=== PATIENT | male | born 1940 | race Caucasian/White ===

== ENCOUNTER 2024-03-07 13:29 | Inpatient (IN) | payer OTHER, SELFPAY ==
[2024-03-04 19:47] VITALS: BP 157/94
[2024-03-04 20:11] LABS: % Basophils 0.4 % (0-2); % Eosinophils 0.1 % (0-6); % Immature Granulocytes 0.8 % (0-0.5); % Lymphocytes 6.2 % (20.5-51.1); % Monocytes 7.6 % (1.7-9.3); % Neutrophils 84.9 % (42.2-75.2); Absolute Immature Granulocytes 0.1 10^3/uL (0-0.05); Absolute Lymphocytes 0.5 10^3/uL (1.2-3.4); Absolute Monocytes 0.6 10^3/uL (0.1-0.6); Absolute Neutrophils 6.5 10^3/uL (1.4-6.5); Hemoglobin 12.7 g/dL (13.0-18.0); Mean Corp Hgb Conc. 34.3 g/dL (33.0-37.0); Mean Corpuscular Hgb 32.1 pg (27.0-31.0); Mean Corpuscular Volume 93.4 fL (80.0-94.0); Mean Platelet Volume 8.8 fL (7.4-10.4); Nucleated Red Blood Cells % 0 % (-); Platelet Count 152 10^3/uL (130-400); Red Blood Cell Count 3.96 10^6/uL (4.70-6.10); Red Cell Dist. Width 13.2 % (11.5-14.5); White Blood Cell Count 7.6 10^3/uL (4.8-10.8)
[2024-03-04 20:25] LABS: ALT (SGPT) 47 U/L (0-50); AST (SGOT) 40 U/L (17-59); Albumin 4.8 g/dl (3.5-5.0); Alkaline Phosphatase 83 U/L (38-126); Blood Urea Nitrogen 26 mg/dl (9-20); Calcium 9.8 mg/dl (8.4-10.2); Carbon Dioxide 28 mmol/L (22-30); Chloride 100 mmol/L (98-107); Glucose 128 mg/dl (70-99); Potassium 4.5 mmol/L (3.5-5.1); Sodium 134 mmol/L (135-145); Total Protein 7.8 g/dl (6.3-8.2); eGFR 59.63
--- NOTE | 2024-03-04 20:48 | ED.GENMED ---
History of Present Illness
General
Chief Complaint: Weakness
Source: patient, spouse and family
Exam Limitations: none
Time Seen by Provider: 03/04/24 20:12
Nursing documentation reviewed up to this point in time: agreed with
Travel History
Have you had any contact with someone who has COVID-19?: No
Do you have any symptoms of coronavirus? Fever > 100 degrees, chills, cough, shortness of breath, sore throat, loss of taste or smell, muscle aches, or headache?: No
History of Present Illness
History of Present Illness:
Patient with history of glioblastoma, off any treatment for the past 3 years, after he was advised that he had already received maximal treatment, presents to ED secondary to increased generalized weakness over the past 2 days, along with decreased
appetite. Denies headache. Denies chest pain. Denies sore throat. Denies coughing. Denies abdominal pain. Denies nausea, vomiting, or diarrhea. Patient states that he was given medication by his primary care physician 2 days ago to alleviate
urinary frequency at nighttime, and feels as though that medication may have 'dried him up'. Denies fever or chills. Denies previous history of similar symptoms. At baseline, since CVA in July 2023, patient has been utilizing walker
independently. Today, per spouse, took multiple people to assist patient back to his bed.
Review of Systems
Review of Systems
Allergies reviewed?: Yes
All Other Systems: ROS reviewed and negative except as documented in HPI and ROS
Constitutional: Reports no symptoms; Denies fever or chills
EENT: Reports no symptoms
Respiratory: Reports no symptoms; Denies cough
Cardiac: Reports no symptoms; Denies chest pain
ABD/GI: Reports no symptoms; Denies abdominal pain, vomiting or diarrhea
: Reports no symptoms; Denies dysuria or frequency
Musculoskeletal: Reports no symptoms
Skin: Reports no symptoms
Neurological: Reports weakness; Denies dizzy, headache or numbness
Phy Exam
Physical Exam
Physical Exam:
Physical Exam
General: no apparent distress, not acutely ill. afebrile. weak appearing.
Head: nc/at. eomi
Neck: supple. normal range of motion.
Heart: s1/s2 regular rate and rhythm, no murmur. equal radial pulses.
Lungs: no acute respiratory distress. clear bilaterally
Abdomen: normal bowel sounds. not tender.
Neuro: alert and oriented x 3. no focal motor/sensory deficits. slowed speech, chronic
Skin: no rash
Psychiatric: well kept. interactive and cooperative
Extremities: no edema. no calf tenderness.
Course
Orders/Labs/Results
Orders:
Orders
03/04/24 Breakfast
Cholesterol Lowering
Cholesterol Lowering: Sodium, 2 Gram
03/04/24 20:03
Complete Blood Count/With Diff Urgent
Comprehensive Metabolic Panel Urgent
Magnesium Urgent
Comment: ADD ON
TSH Reflex To Free T4 Urgent
Comment: ADD ON
03/04/24 20:47
Add On- LAB Urgent
Tests Added?: magnesium, TSH to reflex free T4
CT Head W/o Iv Contrast Urgent
Comment:
Reason For Exam: weakness, w hx glioblastoma
0.9% Sodium Chloride 500 ml [Nss] 500 ml IV BOLUS
03/04/24 20:53
Electrocardiogram (*1) Urgent
Reason for Study: Fatigue / Weakness
03/04/24 20:58
Troponin I Urgent
03/04/24 21:39
Urinalysis Reflex To Culture Urgent
Date Specimen was Collected: 03/04/24
Time Specimen was Collected: 21:30
Urine Microscopic Reflex Cult Urgent
Urine Culture Urgent
ADAN Source: U
Specimen Description:
Date Specimen was Collected: 03/04/24
Time Specimen was Collected: 21:30
Comment: ADD ON
03/04/24 22:02
Add On - Microbiology Urgent
Tests Added?: urine culture
03/04/24 22:23
Admit/Transfer Patient As Directed
Co-Sign Provider:
Level of Care: Observation services
Assign to:: Medical/Surgical
Physician / Group: norma
Diagnosis: weakness
03/04/24 22:24
Code Status As Directed
Resuscitation Status: Full Code
03/04/24 22:26
Blood Culture Q30M
ADAN Source: Blood/Venous
Specimen Description:
Blood Culture Q30M
ADAN Source: Blood/Venous
Specimen Description:
03/04/24 22:58
0.9% Sodium Chloride 1000 ml [Nss] 1,000 ml IV 80 mls/hr
Acetaminophen [Tylenol] 650 mg PO Q6HPRN PRN
Bisacodyl [Dulcolax] 10 mg RECTAL [id number] PRN
Docusate W/Senna [Senokot-S] 1 tablet PO BIDPRN PRN
Polyethylene Glycol Powder [Miralax] 17 grams PO DAILYPRN PRN
03/04/24 22:58
Activity As Directed
Activity Level: As Tolerated
Orthostatic Vital Signs As Directed
Orthostatic VS Frequency: BID
Vital Signs As Directed
Frequency: Per unit guidelines
03/04/24 23:12
COVID-19 Antigen Stat
Source: Nasal Swab
03/05/24 06:00
Basic Metabolic Panel IN AM
Complete Blood Count/No Diff IN AM
Occupational Therapy Consult [Ot Eval And Treat] IN AM
Physical Therapy Consult [Pt Eval And Treat] IN AM
Activity Level: As Tolerated
03/05/24 08:00
Atenolol [Tenormin] 25 mg PO BID
Clotrimazole [Lotrimin 1% Cream] 1 applic TOPICAL DAILY
Levetiracetam [Keppra] 500 mg PO BID
Multivitamin [Theragran] 1 tablet PO DAILY
Pantoprazole [Protonix] 40 mg PO DAILY
03/05/24 22:00
Amiodarone [Pacerone] 200 mg PO HS
Ezetimibe [Zetia] 10 mg PO HS
Rivaroxaban [Xarelto] 15 mg PO HS
Rosuvastatin Calcium [Crestor] 5 mg PO MOWEFR@2200
Abnormal Lab Results
03/04/24 03/04/24
20:03 21:39
RBC 3.96 L 10^6/uL
(4.70-6.10)
Hgb 12.7 L g/dL
(13.0-18.0)
Hct 37.0 L %
(39.0-52.0)
MCH 32.1 H pg
(27.0-31.0)
Abs Immat Gran (auto) 0.1 H 10^3/uL
(0-0.05)
Absolute Lymphs (auto) 0.5 L 10^3/uL
(1.2-3.4)
Immature Gran % 0.8 H %
(0-0.5)
Neutrophils % 84.9 H %
(42.2-75.2)
Lymphocytes % 6.2 L %
(20.5-51.1)
Sodium 134 L mmol/L
(135-145)
BUN 26 H mg/dl
(9-20)
Glucose 128 H mg/dl
(70-99)
Urine Ketones Trace A
(Negative)
Ur Occult Blood Reflex Trace A
(Negative)
Urine RBC 3-6 A /HPF
(0-2)
Urine Bacteria (Reflex) Few A
(Negative)
03/04/24 20:03
03/04/24 20:03
Vital Signs
Initial and Last Documented VS:
Initial Vital Signs
Temp Pulse Resp BP Pulse Ox
97.7 F 67 18 157/94 97
03/04/24 19:47 03/04/24 19:47 03/04/24 19:47 03/04/24 19:47 03/04/24 19:47
Last Documented Vital Signs
Temp Pulse Resp BP Pulse Ox
97.7 F 68 17 147/69 96
03/04/24 19:47 03/05/24 01:27 03/05/24 01:27 03/04/24 21:54 03/04/24 21:54
MDM/Problems Addressed
MDM/Problems Addressed:
CT head: No acute findings.
Blood work reviewed and discussed with patient and family. Increased BUN to creatinine ratio, suggestive of mild dehydration, along with history of decreased oral intake over the past 2 days. Patient with profound weakness, during evaluation,
which will need further evaluation. As such, patient will be admitted for further evaluation and treatment, including continual hydration.
*Critical Care Note
Total Time (30-74mins, 75-104mins- exclusive of procedures): Not Applicable
ED Attending Note
-
Portions of this chart may have been created with voice recognition software.� Occasional wrong word or��sound alike� substitutions may have occurred due to the inherent limitations of voice recognition software.
Discharge Plan
Departure
Patient Disposition: Admit
Date of Disposition: 03/04/24
Time of Disposition: 22:06
Admit to: Med/Surg
Presentation/result/management discussed w/ accepting MD/DO: Hospitalist
Discharge Problem:
Weakness, Dehydration
Interventions
Interventions:
*Risk Screen - Suicide Last Done: 03/04/24 19:47
*General Assessment Last Done: 03/04/24 22:49
*Neglect/Abuse Screening Last Done: 03/04/24 23:22
*ED COVID-19 Vaccine History Last Done: 03/04/24 22:49
ED- Neurological Assessment Last Done: 03/04/24 21:55
[2024-03-04] MEDS: NSS 500 IV (20:57)
[2024-03-04 21:22] LABS: Magnesium 1.9 mg/dl (1.6-2.3)
[2024-03-04 21:32] LABS: Troponin I < 0.012 ng/ml
[2024-03-04 21:47] LABS: Urine Albumin Negative (Neg - Trace); Urine Bilirubin Negative (Negative); Urine Character Clear (Clear); Urine Color Yellow; Urine Glucose Negative (Negative); Urine Ketone Trace (Negative); Urine Leukocyte Negative (Negative); Urine Nitrite Negative (Negative); Urine Occult Blood Trace (Negative); Urine Urobilinogen Negative (Neg - 1+)
[2024-03-04 21:54] VITALS: BP 147/69
[2024-03-04 21:55] LABS: Urine Mucus Few
[2024-03-04 21:56] LABS: Urine Bacteria Few (Negative); Urine White Cell 0-2 /HPF (0-5)
[2024-03-04 21:57] LABS: Urine Squamous Cell 0-2 /LPF (Few)
[2024-03-04 21:59] LABS: TSH Reflex To Free T4 1.67 uIU/ml (0.47-4.68)
--- NOTE | 2024-03-04 22:07 | HPS.HSE ---
Family Physician
-
Family Physician: Anju Mendoza
Chief Complaint
-
weakness
History of Present Illness
83-year-old with past medical history for glioblastoma, hypertension, hyperlipidemia, A-fib, pacemaker presented to us with 2 days of generalized weakness Denies headache. Denies chest pain. Denies sore throat. Denies coughing. Denies
abdominal pain. Denies nausea, vomiting, or diarrhea. Patient denies any dizziness or syncopal episode. patient states that he was given medication by his primary care physician 2 days ago to alleviate urinary frequency at nighttime, and feels as
though that medication may have 'dried him up'. At baseline, since CVA in July 2023, patient has been utilizing walker independently. Today patient was very weak given to walk with a walker.
Medical History
Past Medical History
Past Medical History: Reports Other
Additional Past Medical History:
lioblastoma status postresection, chemotherapy, and radiation, stroke, A-fib, CAD, HTN, hyperlipidemia, right knee arthritis
Past Surgical History: Reports Other
Additional Past Surgical History:
Pacemaker, cardiac stent, left craniotomy for glioblastoma resection
Social History
Tobacco: Non-smoker
Alcohol: Occasional
Drug: None
Personal:
Living: With Family
Family History
Family History: Not pertinent
Allergies / Home Medications
Allergies reflects when Allergies were last updated in [employer].
Home Medications with original date entered in [employer]
Allergy/Medication List:
Allergies
Allergy/AdvReac Type Severity Reaction Status Date / Time
iodine Allergy Unknown Unknown Verified 03/04/24 19:51
Home Medications
acetaminophen 325 mg tablet 650 mg PO Q6HPRN PRN mild pain 03/04/24
amiodarone 200 mg tablet 200 mg PO HS 03/04/24
atenolol 25 mg tablet 25 mg PO BID 03/04/24
clotrimazole 1 % topical cream (Athlete's Foot (clotrimazole)) 1 applic topical DAILY B/L feet 03/04/24
ezetimibe 10 mg tablet (Zetia) 10 mg PO HS High Cholesterol 03/04/24
ipratropium bromide 21 mcg (0.03 %) nasal spray 2 spray intranasal DAILYPRN PRN rhinitis 03/04/24
levetiracetam 500 mg tablet 500 mg PO BID 03/04/24
mvdnpysoawgi-juo-vnsph acid-vit K-lycop 400 mcg-20 mcg-370 mcg tablet (Men's 50 Plus Multivitamin) 1 tab PO DAILY 03/04/24
omeprazole 20 mg capsule,delayed release 20 mg PO DAILY 03/04/24
polyethylene glycol 3350 17 gram oral powder packet (HealthyLax) 17 g PO DAILY PRN constipation 03/04/24
rivaroxaban 15 mg tablet (Xarelto) 15 mg PO HS Blood Clot Prevention/Tx 03/04/24
rosuvastatin 5 mg tablet 5 mg PO MOWEFR@2200 03/04/24
tamsulosin 0.4 mg capsule 0.4 mg PO .SEE BELOW 03/04/24
Review of Systems
-
Constitutional: Reports No Symptoms
EENT: Reports No Symptoms
Respiratory: Reports No Symptoms
Cardiac: Reports No Symptoms
Abdomen/GI: Reports No Symptoms
: Reports No Symptoms
Musculoskeletal: Reports No Symptoms
Skin: Reports No Symptoms
Neurological: Reports Weakness
Endocrine: Reports No Symptoms
Hematologic/Lymphatic: Reports No Symptoms
Psych: Reports No Symptoms
Physical Exam
Vital Signs
Vital Signs
Temp Pulse Resp BP Pulse Ox
97.7 F 64 16 147/69 96
03/04/24 19:47 03/04/24 21:54 03/04/24 21:54 03/04/24 21:54 03/04/24 21:54
Physical Exam
General: Well Developed, Well Nourished and No Apparent Distress
HEENT: NormoCephalic, Moist mucous membranes and Atraumatic
Respiratory: Clear
Cardiac: S1/S2 and Regular Rhythm; No Murmur or Rub
GI: Soft, Non Tender, Non Distended and Normal Bowel Sounds; No Organomegaly
Rectal: Deferred by Provider
Musculoskeletal: No Clubbing, No Cyanosis and No Edema
Skin: No Rash
Neuro: AO x 3 and Nonfocal/grossly intact
Psych: Calm
Laboratory Results
-
03/04/24 20:03
03/04/24 20:03
Laboratory Results
Total Bilirubin 1.0 mg/dl (0.2-1.3) 03/04/24 20:03
AST 40 U/L (17-59) 03/04/24 20:03
ALT 47 U/L (0-50) 03/04/24 20:03
Alkaline Phosphatase 83 U/L (38-126) 03/04/24 20:03
Troponin I < 0.012 ng/ml 03/04/24 20:58
Data Reviewed
-
CT Scan: Report Reviewed by me
Lab Data: Labs Reviewed by me
Impression/Plan
-
#profound weakness likely from poor oral intake/dehydration
-head CT with no acute intracranial abnormality
-UA negative
-PT/OT consult
-normal saline continued
Paroxysmal Atrial Fibrillation s/p Pacemaker
-Continue Xarelto for anticoagulation
-amiodarone continued
-atenolol continued
#essential Hypertension
-normotensive at this time. BP 132/76
-cont home atenolol
Hyperlipidemia
-Continue Zetia,statin
#seizure
-keppra continued
#GERD
-PPI continued
Constipation
started on bowel regimen
Glioblastoma s/p Resection, Chemo and Radiation
DVT proph: Xarelto
Code Status: full code
--- NOTE | 2024-03-04 22:36 | W.PN.UPDATE ---
Update Note
Progress Note Update
This is an addendum to the H&P written by JAH Bean on 03/04/2024. Patient seen and examined independently with ANIMAL BEHAVIORIST.
83-year-old male past medical history of glioblastoma status post craniotomy off of any treatment for past 3 years, seizure history, BPH, paroxysmal atrial fibrillation on Xarelto, hyperlipidemia, GERD, presenting with weakness for the past 2 days.
Denies any other focal symptoms. He had just started Flomax few days ago. Has chronic low intake of food and liquids.
Urinalysis unremarkable. Labs unremarkable. CT head shows stable findings. check COVID. Symptoms possibly related to poor p.o. intake/dehydration. IV fluids. Hold Flomax for now although no specific symptoms to indicate this is the cause of
weakness.
[2024-03-04] MEDS: NSS 1000 IV (23:18)
[2024-03-05] VITALS (8 sets, daily range): BP systolic 129–152; BP diastolic 62–93; PULSE 63–70; O2SAT 95
[2024-03-05 00:05] LABS: COVID-19 Antigen Positive (Negative)
[2024-03-05 06:16] LABS: Hematocrit 32.7 % (39.0-52.0); Hemoglobin 11.3 g/dL (13.0-18.0); Mean Corp Hgb Conc. 34.6 g/dL (33.0-37.0); Mean Corpuscular Hgb 32.3 pg (27.0-31.0); Mean Corpuscular Volume 93.4 fL (80.0-94.0); Mean Platelet Volume 8.9 fL (7.4-10.4); Platelet Count 138 10^3/uL (130-400); Red Cell Dist. Width 13.3 % (11.5-14.5); White Blood Cell Count 6.5 10^3/uL (4.8-10.8)
[2024-03-05 06:49] LABS: Blood Urea Nitrogen 19 mg/dl (9-20); Calcium 9.5 mg/dl (8.4-10.2); Carbon Dioxide 26 mmol/L (22-30); Chloride 103 mmol/L (98-107); Glucose 113 mg/dl (70-99); Potassium 4.1 mmol/L (3.5-5.1); Sodium 136 mmol/L (135-145); eGFR > 60.00
[2024-03-05] MEDS: KEPPRA 500 MG PO ×2 (08:08→21:03)
[2024-03-05] MEDS: PROTONIX 40 MG PO (08:08)
[2024-03-05] MEDS: THERAGRAN 1 TABLET PO (08:08)
--- NOTE | 2024-03-05 09:05 | W.PN.HOSP.TC ---
Today's Communication/Plan
-
PT OT
Encourage incentive spirometry
Out of bed to chair
Stop IV fluids
Assessment / Plan
Assessment / Plan
83-year-old male admitted because of generalized weakness. He has a history of glioblastoma patient was placed on Flomax by PCP recently.
On examination awake alert
Has difficulty expressing words sometimes because of his glioblastoma
Cardiovascular system is most appreciated
Chest. Auscultation of abdomen soft and nontender
CT head-chronic encephalomalacia and gliosis in the left parietal lobe with an overlying left parietal craniotomy defect. Small parenchymal calcification in the left parietal lobe. Moderate subcortical deep and very ventricular white matter
low-attenuation compatible with changes of chronic small vessel ischemic disease.
# Weakness secondary to COVID-19 infection
Not hypoxic
Check chest x-ray
Asymptomatic
Paxlovid has too many interactions including amiodarone, Xarelto, statin-holding these medicines-higher risk than benefits of Paxlovid as patient is asymptomatic.
# Coronary artery disease with history of stent placement
# History of glioblastoma with surgery -H/O Craniotomy and Resection, Chemo and Radiation- 9 years ago
Aphasia /Dysphasia due to that. says he gets frustrated.
Continue Keppra
# H/O CVA
# Nocturia-patient was started on Flomax we will restart it.(Weakness is unlikely from that as he took it only for 1 night and he is positive for COVID now. is aware)
# Hyperlipidemia-continue statin, Zetia
# Paroxysmal Afib- Continue Xarelto, Atenolol, amiodarone
# Ambulatory Dysfunction- Uses a walker
# DVT prophylaxis-Xarelto
# Code Status: full code
Discussed with regarding plan of care. Offered to talk to daughter. declined
Discussed with nursing
Anticipated Discharge: Within 24 hours
Subjective/Interval History
-
Date of Service: March 05, 2024
Objective Data
-
Labs:
Laboratory Results
03/05/24
05:58
WBC 6.5
Hgb 11.3 L
Hct 32.7 L
Plt Count 138
Sodium 136
Potassium 4.1
Chloride 103
Carbon Dioxide 26
BUN 19
Creatinine 1.0
Glucose 113 H
Calcium 9.5
Vital Signs:
Vital Signs
Temp Pulse Resp BP Pulse Ox
98.2 F 86 16 145/93 97
03/05/24 08:14 03/05/24 08:14 03/05/24 08:14 03/05/24 08:14 03/05/24 08:14
I&O
03/04/24 03/05/24 03/06/24
06:59 06:59 06:59
Output Total 500 / 500
Balance -500 / -500
[2024-03-05 10:21] LABS: Procalcitonin < 0.05 ng/ml (0.0-0.25)
--- NOTE | 2024-03-05 11:28 | CM ---
Cm reviewed medical records. CM left message for patient's to discuss [facility] letter and discharge planning recommendations.
[2024-03-05] MEDS: TENORMIN PO (12:25)
[2024-03-05] MEDS: LOTRIMIN 1% CREAM TOPICAL (14:05)
--- NOTE | 2024-03-05 14:33 | PTCARENOTE ---
pt awake oriented to self and knows he is in a hospital. states no pain or sob. speech is delayed and confused at times. pt forgetful about current condition and plan of care. room air breath sounds diminished. harsh cough. placed on bed alarm
and video monitor for safety
[2024-03-05] MEDS: TYLENOL 650 MG PO (17:48)
[2024-03-05] MEDS: TENORMIN 25 MG PO (21:04)
[2024-03-05] MEDS: XARELTO 15 MG PO (22:09)
[2024-03-05] MEDS: ZETIA 10 MG PO (22:09)
[2024-03-05] MEDS: CRESTOR 5 MG PO (22:10)
[2024-03-05] MEDS: FLOMAX 0.400000000000000022 MG PO (22:10)
[2024-03-05] MEDS: PACERONE 200 MG PO (22:12)
[2024-03-06 08:00] VITALS: BP 105/63
[2024-03-06] MEDS: TENORMIN 25 MG PO (11:25)
[2024-03-06] MEDS: THERAGRAN 1 TABLET PO (11:25)
[2024-03-06] MEDS: PROTONIX 40 MG PO (11:25)
[2024-03-06] MEDS: KEPPRA 500 MG PO ×2 (11:26→19:02)
--- NOTE | 2024-03-06 11:28 | W.PN.HOSP.TC ---
Today's Communication/Plan
-
Medically stable for discharge to rehab
Assessment / Plan
Assessment / Plan
83-year-old male admitted because of generalized weakness. He has a history of glioblastoma patient was placed on Flomax by PCP recently.
On examination awake alert
Has difficulty expressing words sometimes because of his glioblastoma
Cardiovascular system is most appreciated
Chest. Auscultation of abdomen soft and nontender
CT head-chronic encephalomalacia and gliosis in the left parietal lobe with an overlying left parietal craniotomy defect. Small parenchymal calcification in the left parietal lobe. Moderate subcortical deep and very ventricular white matter
low-attenuation compatible with changes of chronic small vessel ischemic disease.
# Weakness secondary to COVID-19 infection
Not hypoxic
Chest x-ray-Neg
Asymptomatic
Paxlovid has too many interactions including amiodarone, Xarelto, statin-holding these medicines-higher risk than benefits of Paxlovid as patient is asymptomatic.
Isolation.
Encourage IS( Not at bed side)
# Coronary artery disease with history of stent placement
# History of glioblastoma with surgery -H/O Craniotomy and Resection, Chemo and Radiation- 9 years ago
Aphasia /Dysphasia due to that. says he gets frustrated.
Continue Keppra
# H/O CVA
# Nocturia-patient was started on Flomax we will restart it.(Weakness is unlikely from that as he took it only for 1 night and he is positive for COVID now. is aware)
# Hyperlipidemia-continue statin, Zetia
# Paroxysmal Afib- Continue Xarelto, Atenolol, amiodarone
# Ambulatory Dysfunction- Uses a walker
# DVT prophylaxis-Xarelto
# Code Status: full code
Discussed with nursing
Anticipated Discharge: Today
Subjective/Interval History
-
Date of Service: March 06, 2024
Objective Data
-
Vital Signs:
Vital Signs
Temp Pulse Resp BP Pulse Ox
98.2 F 66 20 105/63 96
03/06/24 08:00 03/06/24 08:00 03/06/24 08:00 03/06/24 08:00 03/06/24 08:00
I&O
03/05/24 03/06/24 03/07/24
06:59 06:59 06:59
Intake Total 960 / 960
Output Total 500 / 500 600 / 600
Balance -500 / -500 360 / 360
[2024-03-06 15:30] VITALS: BP 91/58
[2024-03-06] MEDS: LOTRIMIN 1% CREAM TOPICAL (19:04)
[2024-03-06] MEDS: TENORMIN PO (19:25)
[2024-03-06] MEDS: FLOMAX 0.400000000000000022 MG PO (21:33)
[2024-03-06] MEDS: ZETIA 10 MG PO (21:34)
[2024-03-06] MEDS: XARELTO 15 MG PO (21:34)
[2024-03-06 23:01] VITALS: BP 100/80
[2024-03-06] MEDS: PACERONE PO (23:01)
[2024-03-07 01:29] VITALS: BP 111/68; BP 73/47; BP 95/58; PULSE 62; PULSE 65; PULSE 69
[2024-03-07 07:30] VITALS: BP 113/76
[2024-03-07] MEDS: TENORMIN 25 MG PO (09:01)
[2024-03-07] MEDS: KEPPRA 500 MG PO ×2 (09:02→21:00)
[2024-03-07] MEDS: THERAGRAN 1 TABLET PO (09:02)
[2024-03-07] MEDS: PROTONIX 40 MG PO (09:02)
[2024-03-07] MEDS: LOTRIMIN 1% CREAM TOPICAL (09:03)
--- NOTE | 2024-03-07 10:20 | CM ---
Addendum entered by Natali Avila 03/07/24 10:27:
Late not from 03/06/2024
Original Note:
Late note from 03/07/2024: Lobito is ready for discharge, however not capable to manage at home. Call to [facility] and spoke with Kimmie regarding potential for admission to SNF. Insurance will not cover SNF stay, as [facility] has
[facility]. I contacted [facility] to determine if pt was possibly eligible for the SNF waiver, however he does not qualify for this. SNF admission was discussed with his via telephone with option for private pay at [facility] at
$529/day. Cost of SNF is not feasible per and she advised she would be contacting her son who is a physician. Option for hiring private aid services in home (which would be less costly) were discussed, however Mrs. Gupta did not feel that
they should be required to pay for services. Case Management will follow to further discuss options and costs.
--- NOTE | 2024-03-07 10:31 | CM ---
VM received from pt's son, Dr. Gupta, last evening at again this AM. CM has changed to Sheree Jackson and case discussed with her for hand off. Son's contact information provided via [employer].
--- NOTE | 2024-03-07 11:27 | W.PN.HOSP.TC ---
Today's Communication/Plan
-
Labs pending.
Assessment / Plan
Assessment / Plan
83-year-old male admitted because of generalized weakness. He has a history of glioblastoma patient was placed on Flomax by PCP recently.
On examination awake alert
Has difficulty expressing words sometimes because of his glioblastoma
Cardiovascular system is most appreciated
Chest. Auscultation of abdomen soft and nontender
CT head-chronic encephalomalacia and gliosis in the left parietal lobe with an overlying left parietal craniotomy defect. Small parenchymal calcification in the left parietal lobe. Moderate subcortical deep and very ventricular white matter
low-attenuation compatible with changes of chronic small vessel ischemic disease.
# Weakness secondary to COVID-19 infection
Not hypoxic
Chest x-ray-Neg
Paxlovid has too many interactions including amiodarone, Xarelto, statin-holding these medicines-higher risk than benefits of Paxlovid as patient is asymptomatic.
Isolation.
Encourage IS
# Coronary artery disease with history of stent placement
# History of glioblastoma with surgery -H/O Craniotomy and Resection, Chemo and Radiation- 9 years ago
Aphasia /Dysphasia due to that. says he gets frustrated.
Continue Keppra
# H/O CVA
# Nocturia-patient was started on Flomax -restarted (Weakness is unlikely from that as he took it only for 1 night and he is positive for COVID now. and son aware)
# Hyperlipidemia-continue statin, Zetia
# Paroxysmal Afib- Continue Xarelto, Atenolol, amiodarone
Blood pressure is on the low side and heart rate was in 60s and they held amiodarone last night. I will go down on the atenolol to 12.5 twice daily
# Ambulatory Dysfunction- Uses a walker
# DVT prophylaxis-Xarelto
# Code Status: full code
Discussed with nursing
Spoke to son who is anesthesiologist [phone]. He has about it and would like contact lens fitter and then patient's .
Patient's also has COVID now and really weak and cannot care for the patient.
Reviewed with son regarding Reason for pt not being on Paxlovid.
Anticipated Discharge: 24 - 48 hours
Subjective/Interval History
-
Date of Service: March 07, 2024
Objective Data
-
Labs:
Laboratory Results
03/07/24
11:23
WBC Pending
Hgb Pending
Hct Pending
Plt Count Pending
Sodium Pending
Potassium Pending
Chloride Pending
Carbon Dioxide Pending
BUN Pending
Creatinine Pending
Glucose Pending
Calcium Pending
Vital Signs:
Vital Signs
Temp Pulse Resp BP Pulse Ox
97.9 F 72 18 113/76 97
03/07/24 07:30 03/07/24 07:30 03/07/24 07:30 03/07/24 09:01 03/07/24 07:30
I&O
03/06/24 03/07/24 03/08/24
06:59 06:59 06:59
Intake Total 960 / 960 480 / 480
Output Total 600 / 600 150 / 150
Balance 360 / 360 330 / 330
[2024-03-07 12:34] LABS: Hematocrit 38.6 % (39.0-52.0); Hemoglobin 13.1 g/dL (13.0-18.0); Mean Corp Hgb Conc. 33.9 g/dL (33.0-37.0); Mean Corpuscular Hgb 32.1 pg (27.0-31.0); Mean Corpuscular Volume 94.6 fL (80.0-94.0); Mean Platelet Volume 9.4 fL (7.4-10.4); Platelet Count 167 10^3/uL (130-400); Red Blood Cell Count 4.08 10^6/uL (4.70-6.10); Red Cell Dist. Width 13.4 % (11.5-14.5); White Blood Cell Count 6.3 10^3/uL (4.8-10.8)
[2024-03-07 12:48] LABS: Blood Urea Nitrogen 31 mg/dl (9-20); Calcium 9.5 mg/dl (8.4-10.2); Carbon Dioxide 28 mmol/L (22-30); Chloride 99 mmol/L (98-107); Glucose 126 mg/dl (70-99); Sodium 134 mmol/L (135-145); eGFR 45.62
[2024-03-07 12:58] VITALS: BP 123/75; BP 76/43; BP 82/65; BP 96/71
[2024-03-07 14:01] VITALS: BP 123/75; BP 76/43; BP 82/65; BP 96/71
[2024-03-07] MEDS: NSS 1000 IV (14:24)
--- NOTE | 2024-03-07 16:44 | CM ---
Patient seen bedside.
IA completed.
patient lives with spouse in independent living at [facility].
patient ambulates with a RW.
Has not driven since brain tumor surgey.
Independent prior to admission.
has not been to skilled rehab.
PT recommending skilled rehab and agreeable to the [facility].
also has Covid.
spoke with Son today.
PMD: Vincent Mendoza
Pharmacy: Unsure
Plan: possible skilled rehab.
[2024-03-07] MEDS: TENORMIN 12.5 MG PO (21:00)
[2024-03-07] MEDS: ZETIA 10 MG PO (21:40)
[2024-03-07] MEDS: XARELTO 15 MG PO (21:40)
[2024-03-07] MEDS: CRESTOR 5 MG PO (21:41)
[2024-03-07] MEDS: FLOMAX 0.400000000000000022 MG PO (21:41)
[2024-03-07] MEDS: PACERONE 200 MG PO (21:42)
[2024-03-07] MEDS: TYLENOL 650 MG PO (23:13)
[2024-03-08] MEDS: PROTONIX 40 MG PO (07:49)
[2024-03-08] MEDS: TENORMIN 12.5 MG PO ×2 (07:50→21:21)
[2024-03-08 07:51] VITALS: BP 148/101
[2024-03-08] MEDS: KEPPRA 500 MG PO ×2 (07:51→21:21)
[2024-03-08] MEDS: THERAGRAN 1 TABLET PO (07:51)
[2024-03-08] MEDS: LOTRIMIN 1% CREAM TOPICAL (07:51)
[2024-03-08 08:46] LABS: Blood Urea Nitrogen 29 mg/dl (9-20); Carbon Dioxide 27 mmol/L (22-30); Chloride 104 mmol/L (98-107); Glucose 96 mg/dl (70-99); Potassium 3.9 mmol/L (3.5-5.1); Sodium 135 mmol/L (135-145); eGFR 59.63
--- NOTE | 2024-03-08 10:20 | CM ---
PT recommending skilled rehab.
Patients spouse also has Covid.
Elevated BP today.
Continue to follow for medical stability and skilled bed availability.
Referral to [facility].
Plan: skilled rehab when medically stable.
--- NOTE | 2024-03-08 10:41 | PTCARENOTE ---
Assumed care of pt from previous nurse. Pt denies pain. Pt urinated, pvr 178. Pt call almazan is within reach, pt does at times ring call almazan day. but is forgetful, bed alarm in place. will cont to monitor.
[2024-03-08] MEDS: LOTRIMIN 1% CREAM 1 APPLIC TOPICAL (12:08)
--- NOTE | 2024-03-08 12:19 | W.PN.HOSP.TC ---
Today's Communication/Plan
-
BMP in am
Stop IVF and watch
Encourage OOB
Assessment / Plan
Assessment / Plan
83-year-old male admitted because of generalized weakness. He has a history of glioblastoma patient was placed on Flomax by PCP recently.
On examination awake alert
Has difficulty expressing words sometimes because of his glioblastoma
Cardiovascular system is most appreciated
Chest. Auscultation of abdomen soft and nontender
CT head-chronic encephalomalacia and gliosis in the left parietal lobe with an overlying left parietal craniotomy defect. Small parenchymal calcification in the left parietal lobe. Moderate subcortical deep and very ventricular white matter
low-attenuation compatible with changes of chronic small vessel ischemic disease.
# Weakness secondary to COVID-19 infection
Not hypoxic
Chest x-ray-Neg
Paxlovid has too many interactions including amiodarone, Xarelto, statin-holding these medicines-higher risk than benefits of Paxlovid as patient is asymptomatic.
Isolation.
Encourage IS
#OZIEL- Resolving. Stop IVF and watch creat .
Bladder scan with no changes
# Coronary artery disease with history of stent placement
# History of glioblastoma with surgery -H/O Craniotomy and Resection, Chemo and Radiation- 9 years ago
Aphasia /Dysphasia due to that. says he gets frustrated.
Continue Keppra
# H/O CVA
# Nocturia-patient was started on Flomax -restarted (Weakness is unlikely from that as he took it only for 1 night and he is positive for COVID now. and son aware)
# Hyperlipidemia-continue statin, Zetia
# Paroxysmal Afib- Continue Xarelto, Atenolol, amiodarone
Blood pressure is on the low side and heart rate was in 60s and they held amiodarone last night.
Change Atenolol to 25 in am and 12.5 pm
# Ambulatory Dysfunction- Uses a walker
# DVT prophylaxis-Xarelto
# Code Status: full code
Discussed with nursing
03/07/24-Spoke to son who is anesthesiologist [phone].
Patient's also has COVID now and really weak and cannot care for the patient.
Reviewed with son regarding Reason for pt not being on Paxlovid.
Anticipated Discharge: 24 - 48 hours
Subjective/Interval History
-
Date of Service: March 08, 2024
Objective Data
-
Labs:
Laboratory Results
03/08/24
06:49
Sodium 135
Potassium 3.9
Chloride 104
Carbon Dioxide 27
BUN 29 H
Creatinine 1.2
Glucose 96
Calcium 9.0
Vital Signs:
Vital Signs
Temp Pulse Resp BP Pulse Ox
97.6 F 78 18 148/101 98
03/08/24 07:51 03/08/24 07:51 03/08/24 07:51 03/08/24 07:51 03/08/24 07:51
I&O
03/07/24 03/08/24 03/09/24
06:59 06:59 06:59
Intake Total 480 / 480 960 / 960
Output Total 150 / 150 550 / 550
Balance 330 / 330 410 / 410
--- NOTE | 2024-03-08 14:16 | CM ---
Spoke with patients sposue this am re skilled rehab and hopefully bed availability at the [facility], referral also placed to [facility].
Spoke with patient son, Dr Gupta re same, and he is in agreement.
Discussed possibility of difficulty with skilled bed availability due to Covid.
Both Spouse and son aware if neither of 2 facilities selected are unable to accept due to Covid will need to search for another bed.
Plan: skilled rehab when stable and bed available.
[2024-03-08 15:30] VITALS: BP 139/93
[2024-03-08] MEDS: XARELTO 15 MG PO (21:22)
[2024-03-08] MEDS: ZETIA 10 MG PO (21:22)
[2024-03-08] MEDS: FLOMAX 0.400000000000000022 MG PO (21:22)
[2024-03-08] MEDS: PACERONE 200 MG PO (21:22)
[2024-03-08 23:00] VITALS: BP 154/85
--- NOTE | 2024-03-09 03:44 | PTCARENOTE ---
Pt moved from room 421-01 to room 426-01 so pt can be closer to nurses station d/t constantly jumping out of bed and sounding bed alarm. Pt educated on reasoning for room switches. Pts called typewriter mechanic upset stating called her upset
because pts new room was, 'smaller than before and he could touch both sides of room laying down.' Pts reassured pt moved for safety concerns and that the pt was educated on the room switch. Geriatric Nurse spoke to pt again after speaking to and
reassured of reasoning behind move again and pt stated, 'thank you so much for explaining to me, I feel better.'
[2024-03-09] MEDS: TENORMIN 25 MG PO ×2 (08:44→22:37)
[2024-03-09] MEDS: KEPPRA 500 MG PO ×2 (08:45→22:37)
[2024-03-09] MEDS: PROTONIX 40 MG PO (08:45)
[2024-03-09] MEDS: LOTRIMIN 1% CREAM 1 APPLIC TOPICAL (08:45)
[2024-03-09] MEDS: THERAGRAN 1 TABLET PO (08:45)
[2024-03-09 09:05] VITALS: BP 153/83
--- NOTE | 2024-03-09 13:42 | W.PN.HOSP.TC ---
Today's Communication/Plan
-
medically stable for discharge to Rehab
Assessment / Plan
Assessment / Plan
83-year-old male admitted because of generalized weakness. He has a history of glioblastoma patient was placed on Flomax by PCP recently.
On examination awake alert
Has difficulty expressing words sometimes because of his glioblastoma
Cardiovascular system is most appreciated
Chest. Auscultation of abdomen soft and nontender
CT head-chronic encephalomalacia and gliosis in the left parietal lobe with an overlying left parietal craniotomy defect. Small parenchymal calcification in the left parietal lobe. Moderate subcortical deep and very ventricular white matter
low-attenuation compatible with changes of chronic small vessel ischemic disease.
# Weakness secondary to COVID-19 infection
Not hypoxic
Chest x-ray-Neg
Paxlovid has too many interactions including amiodarone, Xarelto, statin-holding these medicines-higher risk than benefits of Paxlovid as patient is asymptomatic.
Isolation.
Encourage IS
#OZIEL- Resolving. Stop IVF and watch creat .
Bladder scan with no changes
# Coronary artery disease with history of stent placement
# History of glioblastoma with surgery -H/O Craniotomy and Resection, Chemo and Radiation- 9 years ago
Aphasia /Dysphasia due to that. says he gets frustrated.
Continue Keppra
# H/O CVA
# Nocturia-patient was started on Flomax -restarted (Weakness is unlikely from that as he took it only for 1 night and he is positive for COVID now. and son aware)
# Hyperlipidemia-continue statin, Zetia
# Paroxysmal Afib- Continue Xarelto, Atenolol, amiodarone
Atenalol 25 BID
# Ambulatory Dysfunction- Uses a walker
# DVT prophylaxis-Xarelto
# Code Status: full code
Discussed with nursing
03/09/24-Spoke to son who is anesthesiologist [phone] and updated.
Patient's also has COVID now and really weak and cannot care for the patient.
Reviewed with son regarding Reason for pt not being on Paxlovid.
Anticipated Discharge: Within 24 hours
Subjective/Interval History
-
Date of Service: March 09, 2024
Objective Data
-
Vital Signs:
Vital Signs
Temp Pulse Resp BP Pulse Ox
98.1 F 70 18 153/83 95
03/09/24 09:05 03/09/24 09:05 03/09/24 09:05 03/09/24 09:05 03/09/24 09:05
I&O
03/08/24 03/09/24 03/10/24
06:59 06:59 06:59
Intake Total 1680 / 1680 180 / 180
Output Total 550 / 550 850 / 850
Balance 1130 / 1130 -670 / -670
[2024-03-09 16:30] VITALS: BP 153/56
[2024-03-09 22:36] VITALS: BP 119/85
[2024-03-09] MEDS: PACERONE 200 MG PO (22:37)
[2024-03-09] MEDS: FLOMAX 0.400000000000000022 MG PO (22:37)
[2024-03-09] MEDS: XARELTO 15 MG PO (22:37)
[2024-03-09] MEDS: ZETIA 10 MG PO (22:37)
[2024-03-10 08:00] VITALS: BP 166/71
[2024-03-10 10:47] VITALS: BP 103/81; O2SAT 99
[2024-03-10 11:02] VITALS: O2SAT 99
[2024-03-10] MEDS: LOTRIMIN 1% CREAM 1 APPLIC TOPICAL (11:15)
[2024-03-10] MEDS: TENORMIN 25 MG PO ×2 (11:16→20:55)
[2024-03-10] MEDS: PROTONIX 40 MG PO (11:16)
[2024-03-10] MEDS: KEPPRA 500 MG PO ×2 (11:16→20:55)
[2024-03-10] MEDS: THERAGRAN 1 TABLET PO (11:17)
--- NOTE | 2024-03-10 11:36 | W.PN.HOSP.TC ---
Today's Communication/Plan
-
see bold
Assessment / Plan
Assessment / Plan
Gen: NAD, Awake and alert
Eyes: EOMI, PERRLA, no scleral icterus.
Neck: supple.
CV: RRR, +S1/S2, no m/r/g.
Resp: CTAB, no rales, wheezes, or rhonchi.
Abd: +BS, soft, NT, ND
Skin: No rashes.
Neuro: CN 2-12 intact, non-focal.
Psych: Normal mood and affect.
CT head: chronic encephalomalacia and gliosis in the left parietal lobe with an overlying left parietal craniotomy defect. Small parenchymal calcification in the left parietal lobe. Moderate subcortical deep and very ventricular white matter
low-attenuation compatible with changes of chronic small vessel ischemic disease.
CXR: No active cardiopulmonary disease.
Weakness secondary to acute COVID-19 infection:
-with chronic ambulatory dysfunction
-not hypoxemic, CXR NEG
-no Paxlovid due to interactions with pt's other meds (amio, Xarelto, etc)
-encourage IS
Other problems:
OZIEL, resolved with IVFs
CAD with h/o stent placement:
h/o GBM s/p craniotomy and resection, Chemo and and XRT 9 years ago with resulting aphasia/dysphasia: cont Keppra
h/o CVA
Hyperlipidemia: cont statin/Zetia
Paroxysmal Afib: Continue Xarelto/Atenolol/amio
FULL/Xarelto
Medically cleared for discharge. Case management aware.
Anticipated Discharge: Within 24 hours
Subjective/Interval History
-
Date of Service: March 10, 2024
Denies CP/SOB.
Objective Data
-
Vital Signs:
Vital Signs
Temp Pulse Resp BP Pulse Ox
98.0 F 62 16 166/71 98
04/29/24 08:00 03/10/24 08:00 03/10/24 08:00 03/10/24 08:00 03/10/24 08:00
I&O
03/09/24 03/10/24 03/11/24
06:59 06:59 06:59
Intake Total 180 / 180 360 / 360 240 / 240
Output Total 850 / 850 525 / 525 250 / 250
Balance -670 / -670 -165 / -165 -10 / -10
--- NOTE | 2024-03-10 14:32 | CM ---
Addendum entered by Layla Cervantes 03/10/24 14:49:
Update to son re: dc planning and role of [employer] in auth process
He plans to follow up with [employer] for timely approval
Original Note:
CM reviewed pt with Dr Cook- medically read for dc
Pt accepted for SNF service at [facility] per Kimmie
Discussion with admissions- CM confirmed pt is [employer] and not traditional Medicare
Pt will require [employer] auth for SNF
[facility] #[id number]
Dr Anju Mendoza #[id number]
[employer] auth initiated in [employer]
Clinicals faxed to [phone]
Auth pending
[employer] auth pending ref# [id number]
Update to spouse over phone
Discharge- [facility] pending [employer] auth
[2024-03-10 14:55] VITALS: BP 112/73
[2024-03-10 20:54] VITALS: BP 158/85
[2024-03-10] MEDS: ZETIA 10 MG PO (22:20)
[2024-03-10] MEDS: FLOMAX 0.400000000000000022 MG PO (22:20)
[2024-03-10] MEDS: XARELTO 15 MG PO (22:20)
[2024-03-10] MEDS: PACERONE 200 MG PO (22:21)
[2024-03-10] MEDS: CRESTOR 5 MG PO (22:21)
[2024-03-10 22:48] VITALS: BP 155/88
[2024-03-11 08:39] VITALS: BP 144/90
[2024-03-11] MEDS: LOTRIMIN 1% CREAM 1 APPLIC TOPICAL (08:40)
[2024-03-11] MEDS: KEPPRA 500 MG PO ×2 (09:10→20:32)
[2024-03-11] MEDS: TENORMIN 25 MG PO ×2 (09:10→20:32)
[2024-03-11] MEDS: PROTONIX 40 MG PO (09:11)
[2024-03-11] MEDS: THERAGRAN 1 TABLET PO (09:11)
--- NOTE | 2024-03-11 09:37 | W.PN.HOSP.TC ---
Today's Communication/Plan
-
Remains medically cleared for discharge. Case management aware.
Assessment / Plan
Assessment / Plan
Gen: NAD, Awake and alert
Eyes: EOMI, PERRLA, no scleral icterus.
Neck: supple.
CV: remains RRR, +S1/S2, no m/r/g.
Resp: remains CTAB, no rales, wheezes, or rhonchi.
Abd: remains +BS, soft, NT, ND
Skin: No rashes.
Neuro: CN 2-12 intact, non-focal.
Psych: Normal mood and affect.
CT head: chronic encephalomalacia and gliosis in the left parietal lobe with an overlying left parietal craniotomy defect. Small parenchymal calcification in the left parietal lobe. Moderate subcortical deep and very ventricular white matter
low-attenuation compatible with changes of chronic small vessel ischemic disease.
CXR: No active cardiopulmonary disease.
Weakness secondary to acute COVID-19 infection:
-with chronic ambulatory dysfunction
-not hypoxemic, CXR NEG
-no Paxlovid due to interactions with pt's other meds (amio, Xarelto, etc)
-encourage IS
Other problems:
OZIEL, resolved with IVFs
CAD with h/o stent placement:
h/o GBM s/p craniotomy and resection, Chemo and and XRT 9 years ago with resulting aphasia/dysphasia: cont Keppra
h/o CVA
Hyperlipidemia: cont statin/Zetia
Paroxysmal Afib: Continue Xarelto/Atenolol/amio
FULL/Xarelto
Remains medically cleared for discharge. Case management aware.
Anticipated Discharge: Today
Subjective/Interval History
-
Date of Service: March 11, 2024
No new complaints.
Objective Data
-
Vital Signs:
Vital Signs
Temp Pulse Resp BP Pulse Ox
97.1 F 66 18 144/90 97
03/11/24 08:39 03/11/24 08:39 03/11/24 08:39 03/11/24 08:39 03/11/24 08:39
I&O
03/10/24 03/11/24 03/12/24
06:59 06:59 06:59
Intake Total 360 / 360 360 / 360
Output Total 525 / 525 675 / 675
Balance -165 / -165 -315 / -315
--- NOTE | 2024-03-11 11:16 | CM ---
Spoke with Kimmie from the [facility]
Report# [phone]

[facility] still pending ref# [id number]
[2024-03-11 15:20] VITALS: BP 146/82
[2024-03-11 20:31] VITALS: BP 122/77
[2024-03-11 22:24] VITALS: BP 154/90
[2024-03-11] MEDS: ZETIA 10 MG PO (22:26)
[2024-03-11] MEDS: PACERONE 200 MG PO (22:26)
[2024-03-11] MEDS: XARELTO 15 MG PO (22:26)
[2024-03-11] MEDS: FLOMAX 0.400000000000000022 MG PO (22:26)
[2024-03-12 07:30] VITALS: BP 108/82
[2024-03-12] MEDS: TENORMIN PO (09:56)
[2024-03-12] MEDS: KEPPRA 500 MG PO ×2 (10:13→20:46)
[2024-03-12] MEDS: THERAGRAN 1 TABLET PO (10:14)
[2024-03-12] MEDS: PROTONIX 40 MG PO (10:14)
[2024-03-12] MEDS: LOTRIMIN 1% CREAM 1 APPLIC TOPICAL (10:15)
[2024-03-12 12:22] VITALS: BP 133/61; PULSE 61; O2SAT 99
--- NOTE | 2024-03-12 12:28 | W.PN.HOSP.TC ---
Today's Communication/Plan
-
Continues to remains medically cleared for discharge. Case management aware.
Assessment / Plan
Assessment / Plan
Gen: NAD, Awake and alert
Eyes: EOMI, PERRLA, no scleral icterus.
Neck: supple.
CV: Continues to remain RRR, +S1/S2, no m/r/g.
Resp: Continues to remain CTAB, no rales, wheezes, or rhonchi.
Abd: Continues to remain +BS, soft, NT, ND
Skin: No rashes.
Neuro: CN 2-12 intact, non-focal.
Psych: Normal mood and affect.
CT head: chronic encephalomalacia and gliosis in the left parietal lobe with an overlying left parietal craniotomy defect. Small parenchymal calcification in the left parietal lobe. Moderate subcortical deep and very ventricular white matter
low-attenuation compatible with changes of chronic small vessel ischemic disease.
CXR: No active cardiopulmonary disease.
Weakness secondary to acute COVID-19 infection:
-with chronic ambulatory dysfunction
-not hypoxemic, CXR NEG
-no Paxlovid due to interactions with pt's other meds (amio, Xarelto, etc)
-encourage IS
Other problems:
OZIEL, resolved with IVFs
CAD with h/o stent placement:
h/o GBM s/p craniotomy and resection, Chemo and and XRT 9 years ago with resulting aphasia/dysphasia: cont Keppra
h/o CVA
Hyperlipidemia: cont statin/Zetia
Paroxysmal Afib: Continue Xarelto/Atenolol/amio
FULL/Xarelto
Continues to remains medically cleared for discharge. Case management aware.
Anticipated Discharge: Today
Subjective/Interval History
-
Date of Service: March 12, 2024
No new complaints.
Objective Data
-
Vital Signs:
Vital Signs
Temp Pulse Resp BP Pulse Ox
97.3 F 62 18 108/82 98
03/12/24 07:30 03/12/24 07:30 03/12/24 07:30 03/12/24 09:56 03/12/24 07:30
I&O
03/11/24 03/12/24 03/13/24
06:59 06:59 06:59
Intake Total 360 / 360 1370 / 1370
Output Total 675 / 675 175 / 175
Balance -315 / -315 1195 / 1195
[2024-03-12 12:32] VITALS: BP 133/81; PULSE 65
--- NOTE | 2024-03-12 14:11 | CM ---
Addendum entered by Diann Jackson 03/12/24 15:29:
Patients son, Dr Gupta updated.
He also called insurance and asked for an expedited review.
Original Note:
Spoke with Kimmie from the [facility]
Report# [phone]

[employer] auth still pending ref# [id number]
Spoke with Liv from [facility] this am, auth still pending but someone was working on the case.
[2024-03-12 20:25] VITALS: BP 132/71
[2024-03-12] MEDS: TENORMIN 25 MG PO (20:46)
[2024-03-12 23:21] VITALS: BP 159/94
[2024-03-12] MEDS: ZETIA 10 MG PO (23:21)
[2024-03-12] MEDS: FLOMAX 0.400000000000000022 MG PO (23:21)
[2024-03-12] MEDS: XARELTO 15 MG PO (23:21)
[2024-03-12] MEDS: PACERONE 200 MG PO (23:22)
[2024-03-12] MEDS: CRESTOR 5 MG PO (23:22)
[2024-03-13 07:05] VITALS: BP 141/86
--- NOTE | 2024-03-13 09:01 | W.PN.HOSP.TC ---
Today's Communication/Plan
-
d/c
Assessment / Plan
Assessment / Plan
Gen: remains NAD, Awake and alert
Eyes: EOMI, PERRLA, no scleral icterus.
Neck: supple.
CV: RRR, +S1/S2, no m/r/g.
Resp: CTAB, no rales, wheezes, or rhonchi.
Abd: +BS, soft, NT, ND
Skin: No rashes.
Neuro: remains CN 2-12 intact, non-focal.
Psych: remains Normal mood and affect.
CT head: chronic encephalomalacia and gliosis in the left parietal lobe with an overlying left parietal craniotomy defect. Small parenchymal calcification in the left parietal lobe. Moderate subcortical deep and very ventricular white matter
low-attenuation compatible with changes of chronic small vessel ischemic disease.
CXR: No active cardiopulmonary disease.
Weakness secondary to acute COVID-19 infection:
-with chronic ambulatory dysfunction
-not hypoxemic, CXR NEG
-no Paxlovid due to interactions with pt's other meds (amio, Xarelto, etc)
-encourage IS
Other problems:
OZIEL, resolved with IVFs
CAD with h/o stent placement:
h/o GBM s/p craniotomy and resection, Chemo and and XRT 9 years ago with resulting aphasia/dysphasia: cont Keppra
h/o CVA
Hyperlipidemia: cont statin/Zetia
Paroxysmal Afib: Continue Xarelto/Atenolol/amio
FULL/Xarelto
Total time spent on d/c = 31 min. This included today's physical exam, progress note, review of laboratory and diagnostic data, preparation of discharge documents and prescriptions, and discussions about the pt's hospital course and discharge plan
with the patient and other medical practice manager involved in the patient's care.
Anticipated Discharge: Today
Subjective/Interval History
-
Date of Service: March 13, 2024
No new complaints.
Objective Data
-
Vital Signs:
Vital Signs
Temp Pulse Resp BP Pulse Ox
98.6 F 75 18 159/94 99
03/12/24 23:21 03/12/24 23:22 03/12/24 23:21 03/12/24 23:22 03/12/24 23:21
I&O
03/12/24 03/13/24 03/14/24
06:59 06:59 06:59
Intake Total 1370 / 1370 780 / 780
Output Total 175 / 175 700 / 700
Balance 1195 / 1195 80 / 80
--- NOTE | 2024-03-13 10:11 | CM ---
[facility]
Authorization # [id number]
Approved 03/13/24 with LCD 03/25/24, NRD 03/26/24
Updates to Teresita Sendkervin p# [phone],
Patient will require ambulance transport
Auth given to Kimmie at the [facility]
Report# [phone]
[2024-03-13] MEDS: TENORMIN 25 MG PO (10:32)
[2024-03-13] MEDS: PROTONIX 40 MG PO (10:32)
[2024-03-13] MEDS: KEPPRA 500 MG PO (10:33)
[2024-03-13] MEDS: THERAGRAN 1 TABLET PO (10:33)
[2024-03-13] MEDS: LOTRIMIN 1% CREAM 1 APPLIC TOPICAL (10:34)
[2024-03-13 15:11] VITALS: BP 138/76
--- NOTE | 2024-03-13 15:46 | W.DCSUMMARY ---
Discharge Summary
Discharge Data
Date of Admission: 03/07/24
Date of Discharge: 03/13/24
-
Pending Results: No
Hospital Course
Primary diagnoses:
Weakness due to acute COVID-19 infection
Secondary diagnoses:
Chronic ambulatory dysfunction
Acute kidney injury
Coronary disease with h/o stent placement:
h/o glioblastoma multiforme s/p craniotomy and resection, chemotherapy, and radiation 9 years prior to admission with resulting aphasia/dysphasia
h/o cerebrovascular accident
Hyperlipidemia
Paroxysmal atrial fibrillation
Consultants:
None
Imaging:
CT head: chronic encephalomalacia and gliosis in the left parietal lobe with an overlying left parietal craniotomy defect. Small parenchymal calcification in the left parietal lobe. Moderate subcortical deep and very ventricular white matter
low-attenuation compatible with changes of chronic small vessel ischemic disease.
CXR: No active cardiopulmonary disease.
Hospital course: 83-year-old male who presented with a chief complaint of weakness as outlined in the H&P done on admission. Patient was found to be COVID-positive. He was not hypoxemic and his chest x-ray did not have any infiltrate. He was
treated supportively. He had acute kidney injury that resolved with IV fluids much of the patient's hospitalization was simply waiting for insurance authorization for placement. He was discharged in medically stable condition.
Discharge Plan
-
Patient Disposition: Fci/SNF
Discharge Diagnosis/Procedures: COVID-19 infection, coronary artery disease, history of glioblastoma , history of CVA, hyperlipidemia, atrial fibrillation, ambulatory dysfunction
Diet: As tolerated
Activity: As tolerated
Driving Restrictions: No driving
Other Services: PT and OT
Referrals:
Anju Mendoaz MD [Family Provider] - in less than 1 week
Prescriptions:
New
bisacodyl 10 mg Suppository
10 mg MO [id number] PRN (Reason: constipation) Qty: 0 0RF
pantoprazole 40 mg Tablet,Delayed Release (Dr/Ec)
40 mg PO DAILY Qty: 0 0RF
Continued
amiodarone 200 mg Tablet
200 mg PO HS
levetiracetam 500 mg Tablet
500 mg PO BID
atenolol 25 mg Tablet
25 mg PO BID
tamsulosin 0.4 mg Capsule
0.4 mg PO .SEE BELOW
Patient Comments:
03/04/2024, pt. stopped taking this med. 2 days ago. Prescribed for pt. to take one capsule daily. Pt. stopped taking this med. because he thought it worked to retain his urine throughout the night.
ipratropium bromide 21 mcg (0.03 %) [place],Non-Aerosol
2 spray INTRANASAL DAILYPRN PRN (Reason: rhinitis)
rosuvastatin 5 mg Tablet
5 mg PO MOWEFR@2200
Men's 50 Plus Multivitamin 400-20-370 mcg Tablet
1 tab PO DAILY
acetaminophen 325 mg tablet
650 mg PO Q6HPRN PRN (Reason: mild pain)
polyethylene glycol 3350 [HealthyLax] 17 gram powder in packet
17 g PO DAILY PRN (Reason: constipation)
clotrimazole [Athlete's Foot (clotrimazole)] 1 % cream
1 applic topical DAILY
ezetimibe [Zetia] 10 mg tablet
10 mg PO HS
Xarelto 15 mg tablet
15 mg PO HS
Discontinued
omeprazole 20 mg Capsule,Delayed Release(Dr/Ec)
20 mg PO DAILY
Discharge Orders:
Discharge Patient (As Directed); Ordered 03/13/24
Ordered By: Denis Cook
Discharge Date and Time
Print Language: FAROESE
== END 2024-03-13 16:07 | DRG 178 ==
LOC: 4 WEST ACU 13:29
PROVIDERS: Emergency Medicine; Hospitalist; Registered Nurse; ADMITTING PHYSICIAN Hospitalist; ATTENDING PHYSICIAN Internal Medicine; EMERGENCY PHYSICIAN Emergency Medicine; FAMILY PHYSICIAN Internal Medicine Geriatric Medicine
DX: U07.1 COVID-19 (principal); C71.9 Malignant neoplasm of brain, unspecified; R47.01 Aphasia; N17.9 Acute kidney failure, unspecified; E86.0 Dehydration; R35.0 Frequency of micturition; I10 Essential (primary) hypertension; E78.5 Hyperlipidemia, unspecified; I48.0 Paroxysmal atrial fibrillation; I25.10 Atherosclerotic heart disease of native coronary artery without angina pectoris; R56.9 Unspecified convulsions; K21.9 Gastro-esophageal reflux disease without esophagitis; G93.89 Other specified disorders of brain; K59.00 Constipation, unspecified; R47.02 Dysphasia; R35.1 Nocturia; M17.11 Unilateral primary osteoarthritis, right knee; Z86.73 Personal history of transient ischemic attack (TIA), and cerebral infarction without residual deficits; Z95.0 Presence of cardiac pacemaker; Z92.21 Personal history of antineoplastic chemotherapy; Z92.3 Personal history of irradiation; Z95.5 Presence of coronary angioplasty implant and graft; Z91.041 Radiographic dye allergy status; Z79.01 Long term (current) use of anticoagulants
CPT/HCPCS: 70450; 71046; 80048; 80053; 81003; 81015; 83735; 84145; 84443; 84484; 85025; 85027; 87040; 87086; 87811; 93005; 96360; 97167; 97530; 97535; 99285

== ENCOUNTER 2024-05-06 17:09 | Observation (INO) | payer OTHER, SELFPAY ==
[2024-05-05 23:10] VITALS: BP 170/114
[2024-05-05 23:39] LABS: Urine Albumin Negative (Neg - Trace); Urine Bilirubin Negative (Negative); Urine Character Clear (Clear); Urine Color Yellow; Urine Glucose Negative (Negative); Urine Ketone Negative (Negative); Urine Leukocyte Trace (Negative); Urine Nitrite Negative (Negative); Urine Occult Blood Trace (Negative); Urine Urobilinogen Negative (Neg - 1+)
[2024-05-06] VITALS (9 sets, daily range): BP systolic 98–148; BP diastolic 57–102; BMI 26.3; BMI 24.9
[2024-05-06 00:20] LABS: Urine Bacteria Few (Negative); Urine Red Blood Cell 0-2 /HPF (0-2); Urine White Cell 21-25 /HPF (0-5)
--- NOTE | 2024-05-06 03:36 | ED.GENMED ---
History of Present Illness
<Jossie Vázquez DO - Last Filed: 05/06/24 09:20>
General
Chief Complaint: Back Pain
Source: patient and previous hospital records
Exam Limitations: none
Time Seen by Provider: 05/06/24 03:19
Nursing documentation reviewed up to this point in time: agreed with
History of Present Illness
History of Present Illness:
This is an 83-year-old gentleman who has remote history of glioblastoma status post surgical resection over 9 years ago with residual expressive aphasia and chronic ambulatory dysfunction. Generally ambulates with a walker.
He resides with his at [facility] independent living apartment.
He also has history of A-fib chronically maintained on Xarelto.
While family was visiting 1 week ago patient admits to being excited and getting up and attempting to greet them without using his wheelchair suffering a fall onto his buttocks. He denies head injury nor loss of consciousness. He has been
ambulating with his walker since that fall a week ago but over the past 2 to 3 days he complains of increased pain in his lower back/buttock region that is much worse with repositioning, rolling over in bed, worse with lifting his left leg and
according to patient has not been out of bed over the past 2 days due to increase in his back pain.
He has not been taking anything for pain.
He denies weakness or numbness, denies headache nor neck pain, denies abdominal pain nor chest pain. No dizziness nor lightheadedness. His appetite has been good. He denies difficulty with urination, no difficulty moving his bowels.
He does require their 24-hour care and has home health care services during the morning and afternoon.
Past History
<Jossie Vázquez DO - Last Filed: 05/06/24 09:20>
Past History
ED Past Medical History: Arrthythmia, CAD, Cancer (Glioblastoma), CVA, HTN, Hypercholesterolemia and Other (Osteoarthritis, chronic ambulatory dysfunction, chronic expressive aphasia)
ED Past Surgical History: Brain and Cardiac (Pacemaker, stent)
Social History
Tobacco: Non-smoker
Alcohol: None
Personal:
Living: with family
Employment: Retired
Family History
Family History: Other (Noncontributory)
Phy Exam
<Jossie Vázquez DO - Last Filed: 05/06/24 09:20>
Physical Exam
Physical Exam:
GENERAL: 83-year-old gentleman appears his stated age, awake and alert, pleasant, appears in no acute distress. Mild expressive aphasia noted and intermittently wincing in pain.
EYE: pupils equal and reactive. anicteric. The head is normocephalic, atraumatic.
NECK: Supple, nontender, no meningismus, no significant adenopathy.
ENT: oral mucosa is moist. No rhinorrhea.
CARDIAC: Regular rate and rhythm. no murmur.
LUNGS: Clear breath sounds bilaterally, no acute respiratory distress, no wheezes/rales/rhonchi
ABDOMEN: Soft, nondistended, without focal tenderness, no r/g, no cvat. normoactive BS.
BACK: No midline bony tenderness nor tenderness about the sacrum nor coccyx. There is mild tenderness left posterior hip and increased pain left posterior hip with flexion/extension and external rotation of the left hip.
NEUROLOGICAL: Alert and oriented x3, mild expressive aphasia. Motor strength 5/5 bilaterally. Gross sensation is intact.
SKIN: Warm and dry, normal color, skin intact. No rash. No contusions nor ecchymosis.
MUSCULOSKELETAL: No C/C/E. peripheral pulses are full and equal b/l. Mild tenderness left posterior hip with increased pain with range of motion of left hip.
PSYCH: Normal and appropriate interaction.
Course
<Jossie Vázquez DO - Last Filed: 05/06/24 09:20>
Orders/Labs/Results
Orders:
Orders
05/05/24 23:26
Urinalysis Urgent
Date Specimen was Collected: 05/05/24
Time Specimen was Collected: 23:24
Urine Microscopic Urgent
Date Specimen was Collected: 05/05/24
Time Specimen was Collected: 23:24
05/06/24 03:34
Acetaminophen 1000MG/100Ml [Ofirmev] 1,000 mg in 100 ml IV ONCE
Acetaminophen IV Indication:: ED Narcotic Naive Pt-ONCE
05/06/24 05:36
Complete Blood Count/With Diff Urgent
Comprehensive Metabolic Panel Urgent
05/06/24 06:53
Diphenhydramine [Benadryl] 50 mg IV NOW STA
Hydrocortisone Sod Succinate [Solu-Cortef] 200 mg IV NOW STA
05/06/24 06:54
CT Abd/pelvis W Iv Cont Urgent
Comment:
Reason For Exam: fall 1 week ago-progressive low back pain, on NOAC
05/06/24 06:55
CT Head W/o Iv Contrast Urgent
Comment:
Reason For Exam: fall 1 week ago, exp aphasia, weakness
05/06/24 09:18
Physical Therapy Consult [Pt Eval And Treat] Urgent
Treatment: ambulate w walker
Activity Level: Ambulate
Abnormal Lab Results
05/05/24 05/06/24
23:26 05:36
RBC 4.19 L 10^6/uL
(4.70-6.10)
MCH 32.0 H pg
(27.0-31.0)
RDW 14.6 H %
(11.5-14.5)
Abs Immat Gran (auto) 0.1 H 10^3/uL
(0-0.05)
Absolute Neuts (auto) 6.7 H 10^3/uL
(1.4-6.5)
Absolute Lymphs (auto) 1.1 L 10^3/uL
(1.2-3.4)
Absolute Monos (auto) 0.8 H 10^3/uL
(0.1-0.6)
Immature Gran % 1.3 H %
(0-0.5)
Neutrophils % 75.5 H %
(42.2-75.2)
Lymphocytes % 12.7 L %
(20.5-51.1)
Monocytes % 9.4 H %
(1.7-9.3)
BUN 30 H mg/dl
(9-20)
Glucose 111 H mg/dl
(70-99)
Urine Occult Blood Trace A
(Negative)
Ur Leukocyte Esterase Trace A
(Negative)
Urine WBC 21-25 A /HPF
(0-5)
Urine Bacteria Few A
(Negative)
05/06/24 05:36
05/06/24 05:36
Vital Signs
Initial and Last Documented VS:
Initial Vital Signs
Temp Pulse Resp BP Pulse Ox
97.9 F 74 24 170/114 96
05/05/24 23:10 05/05/24 23:10 05/05/24 23:10 05/05/24 23:10 05/05/24 23:10
Last Documented Vital Signs
Temp Pulse Resp BP Pulse Ox
97.9 F 69 21 126/60 97
05/05/24 23:10 05/06/24 13:00 05/06/24 13:00 05/06/24 08:00 05/06/24 09:30
[place];Garrison Valenzuela PA-C - Last Filed: 05/06/24 15:00>
Orders/Labs/Results
Orders:
Orders
05/05/24 23:26
Urinalysis Urgent
Date Specimen was Collected: 05/05/24
Time Specimen was Collected: 23:24
Urine Microscopic Urgent
Date Specimen was Collected: 05/05/24
Time Specimen was Collected: 23:24
05/06/24 03:34
Acetaminophen 1000MG/100Ml [Ofirmev] 1,000 mg in 100 ml IV ONCE
Acetaminophen IV Indication:: ED Narcotic Naive Pt-ONCE
05/06/24 05:36
Complete Blood Count/With Diff Urgent
Comprehensive Metabolic Panel Urgent
05/06/24 06:53
Diphenhydramine [Benadryl] 50 mg IV NOW STA
Hydrocortisone Sod Succinate [Solu-Cortef] 200 mg IV NOW STA
05/06/24 06:54
CT Abd/pelvis W Iv Cont Urgent
Comment:
Reason For Exam: fall 1 week ago-progressive low back pain, on NOAC
05/06/24 06:55
CT Head W/o Iv Contrast Urgent
Comment:
Reason For Exam: fall 1 week ago, exp aphasia, weakness
05/06/24 09:18
Physical Therapy Consult [Pt Eval And Treat] Urgent
Treatment: ambulate w walker
Activity Level: Ambulate
Abnormal Lab Results
05/05/24 05/06/24
23:26 05:36
RBC 4.19 L 10^6/uL
(4.70-6.10)
MCH 32.0 H pg
(27.0-31.0)
RDW 14.6 H %
(11.5-14.5)
Abs Immat Gran (auto) 0.1 H 10^3/uL
(0-0.05)
Absolute Neuts (auto) 6.7 H 10^3/uL
(1.4-6.5)
Absolute Lymphs (auto) 1.1 L 10^3/uL
(1.2-3.4)
Absolute Monos (auto) 0.8 H 10^3/uL
(0.1-0.6)
Immature Gran % 1.3 H %
(0-0.5)
Neutrophils % 75.5 H %
(42.2-75.2)
Lymphocytes % 12.7 L %
(20.5-51.1)
Monocytes % 9.4 H %
(1.7-9.3)
BUN 30 H mg/dl
(9-20)
Glucose 111 H mg/dl
(70-99)
Urine Occult Blood Trace A
(Negative)
Ur Leukocyte Esterase Trace A
(Negative)
Urine WBC 21-25 A /HPF
(0-5)
Urine Bacteria Few A
(Negative)
05/06/24 05:36
05/06/24 05:36
Vital Signs
Initial and Last Documented VS:
Initial Vital Signs
Temp Pulse Resp BP Pulse Ox
97.9 F 74 24 170/114 96
05/05/24 23:10 05/05/24 23:10 05/05/24 23:10 05/05/24 23:10 05/05/24 23:10
Last Documented Vital Signs
Temp Pulse Resp BP Pulse Ox
97.9 F 69 21 126/60 97
05/05/24 23:10 05/06/24 13:00 05/06/24 13:00 05/06/24 08:00 05/06/24 09:30
<Jossie Vázquez DO - Last Filed: 05/06/24 09:20>
MDM/Problems Addressed
Differential Diagnosis Includes:
Concern for occult hip fracture/pelvic fracture. As patient chronically maintained on Xarelto, concern for retroperitoneal hematoma.
Will check labs, medicate for pain with IV Tylenol and plan for CT abdomen pelvis.
Records reveal allergy to iodine and shellfish. Will plan to prep with hydrocortisone and Benadryl prior to CT.
Chronic conditions affecting care: HTN, Arrhythmia, Neurological disorder and Kidney disease
<Garrison Valenzuela PA-C - Last Filed: 05/06/24 15:00>
*Critical Care Note
Total Time (30-74mins, 75-104mins- exclusive of procedures): Not Applicable
<Jossie Vázquez DO - Last Filed: 05/06/24 09:20>
Update Note
Update Note:
05/06/[address] of the head and CT of the abdomen pelvis essentially unremarkable.
Labs are unremarkable.
Urinalysis shows few WBCs, few bacteria but also some squamous epithelial cells not consistent with UTI. No blood.
Patient is eager to be discharged to home but reports no improvement in pain after IV Tylenol and continues to intermittently wince in pain most noted with movement of his left lower extremity. There is no evidence of fracture on CT but moderate
lumbar DJD.
Will plan for physical therapy evaluation at bedside and if patient able to successfully ambulate we will plan for discharge to home with continued close care with family and home nursing care.
<Garrison Valenzuela PA-C - Last Filed: 05/06/24 15:00>
Update Note
Update Note:
05/06/2024918 AM
CT of the head and CT of the abdomen pelvis essentially unremarkable.
Labs are unremarkable.
Urinalysis shows few WBCs, few bacteria but also some squamous epithelial cells not consistent with UTI. No blood.
Patient is eager to be discharged to home but reports no improvement in pain after IV Tylenol and continues to intermittently wince in pain most noted with movement of his left lower extremity. There is no evidence of fracture on CT but moderate
lumbar DJD.
Will plan for physical therapy evaluation at bedside and if patient able to successfully ambulate we will plan for discharge to home with continued close care with family and home nursing care.
Update: 11:01 AM: Received care of patient pending CAT scan report and physical therapy evaluation. CT reviewed without significant findings acutely. Patient evaluated by physical therapy and did well ambulated with a walker. Per physical therapy
he meets criteria to go back to his current place of residence with home care. Patient agreeable to this. Stable for discharge.
3 PM. Significant sermon on family's behalf for potential discharge of this patient. His who is his caregiver for a good portion of the day is currently admitted to the hospital. Case management involved. At this point the patient is an
unsafe discharge as he is unable to take care of himself. Case management has a bed available at a SNF tomorrow but will need to stay in the hospital overnight pending placement
ED Attending Note
<Jossie Vázquez DO - Last Filed: 05/06/24 09:20>
-
Portions of this chart may have been created with voice recognition software.� Occasional wrong word or��sound alike� substitutions may have occurred due to the inherent limitations of voice recognition software.
Discharge Plan
Departure
Patient Disposition: Admit
Date of Disposition: 05/06/24
Time of Disposition: 11:01
Presentation/result/management discussed w/ accepting MD/DO: Hospitalist
Patient with high blood pressure during this ER visit?: No
Discharge Problem:
Low back pain
Instructions: Low Back Pain (DC)
Prescriptions:
No Action
amiodarone 200 mg Tablet
200 mg PO HS
levetiracetam 500 mg Tablet
500 mg PO BID
atenolol 25 mg Tablet
25 mg PO BID
tamsulosin 0.4 mg Capsule
0.4 mg PO .SEE BELOW
Patient Comments:
03/04/2024, pt. stopped taking this med. 2 days ago. Prescribed for pt. to take one capsule daily. Pt. stopped taking this med. because he thought it worked to retain his urine throughout the night.
ipratropium bromide 21 mcg (0.03 %) [place],Non-Aerosol
2 spray INTRANASAL DAILYPRN PRN (Reason: rhinitis)
rosuvastatin 5 mg Tablet
5 mg PO MOWEFR@2200
Men's 50 Plus Multivitamin 400-20-370 mcg Tablet
1 tab PO DAILY
acetaminophen 325 mg tablet
650 mg PO Q6HPRN PRN (Reason: mild pain)
polyethylene glycol 3350 [HealthyLax] 17 gram powder in packet
17 g PO DAILY PRN (Reason: constipation)
clotrimazole [Athlete's Foot (clotrimazole)] 1 % cream
1 applic topical DAILY
ezetimibe [Zetia] 10 mg tablet
10 mg PO HS
Xarelto 15 mg tablet
15 mg PO HS
bisacodyl 10 mg Suppository
10 mg OK [id number] PRN (Reason: constipation) Qty: 0 0RF
pantoprazole 40 mg Tablet,Delayed Release (Dr/Ec)
40 mg PO DAILY Qty: 0 0RF
Referrals:
Anju Mendoza MD [Family Provider] -
Activity Restrictions/Additional Instructions:
Please continue to use Tylenol if needed for pain. Return if worse otherwise follow-up with your family doctor
Interventions
Interventions:
*Risk Screen - Suicide Last Done: 05/06/24 01:04
*General Assessment Last Done: 05/06/24 01:04
*Neglect/Abuse Screening Last Done: 05/06/24 01:04
ED- Fall Risk Assessment Last Done: 05/06/24 01:04
*ED COVID-19 Vaccine History Last Done: 05/06/24 01:04
ED-Musculoskeletal Assessment Last Done: 05/06/24 01:04
Discharge Date and Time
Print Language: GAMBIAN
[2024-05-06] MEDS: OFIRMEV 100 IV (05:39)
[2024-05-06 05:45] LABS: % Basophils 0.3 % (0-2); % Eosinophils 0.8 % (0-6); % Immature Granulocytes 1.3 % (0-0.5); % Lymphocytes 12.7 % (20.5-51.1); % Monocytes 9.4 % (1.7-9.3); % Neutrophils 75.5 % (42.2-75.2); Absolute Eosinophils 0.1 10^3/uL (0-0.7); Absolute Immature Granulocytes 0.1 10^3/uL (0-0.05); Absolute Lymphocytes 1.1 10^3/uL (1.2-3.4); Absolute Monocytes 0.8 10^3/uL (0.1-0.6); Absolute Neutrophils 6.7 10^3/uL (1.4-6.5); Hematocrit 39.4 % (39.0-52.0); Hemoglobin 13.4 g/dL (13.0-18.0); Mean Platelet Volume 9.2 fL (7.4-10.4); Nucleated Red Blood Cells % 0 % (-); Platelet Count 153 10^3/uL (130-400); Red Blood Cell Count 4.19 10^6/uL (4.70-6.10); Red Cell Dist. Width 14.6 % (11.5-14.5); White Blood Cell Count 8.9 10^3/uL (4.8-10.8)
[2024-05-06 06:23] LABS: ALT (SGPT) 49 U/L (0-50); AST (SGOT) 39 U/L (17-59); Albumin 4.5 g/dl (3.5-5.0); Alkaline Phosphatase 87 U/L (38-126); Blood Urea Nitrogen 30 mg/dl (9-20); Calcium 9.9 mg/dl (8.4-10.2); Carbon Dioxide 27 mmol/L (22-30); Chloride 103 mmol/L (98-107); Estimated Creatinine Clearance 57 ml/min; Glucose 111 mg/dl (70-99); Sodium 140 mmol/L (135-145); Total Bilirubin 0.6 mg/dl (0.2-1.3); Total Protein 7.4 g/dl (6.3-8.2); eGFR > 60.00
[2024-05-06] MEDS: BENADRYL 50 MG IV (07:10)
[2024-05-06] MEDS: SOLU-CORTEF 200 MG IV (07:11)
--- NOTE | 2024-05-06 12:40 | CM ---
Addendum entered by Tana Chris RN 05/06/24 17:11:
CM provided patient's grand daughters with G[employer] letter. Granddaughter brought G[employer] letter to patient's who is hospitalized to approve OBSERVATION. If patient's is not in agreement with OBS, granddaughter will bring patient home.
CM will await decision.
Addendum entered by Tana Chris RN 05/06/24 15:53:
CM updated family that there is NOT a plan for placement in OBS/Inpatient. Granddaughter is very upset that patient is being discharged and feels he has medical needs that haven't been addressed. CM updated CM director Dr. Joey Flores and
ED PA. ED PA will meet with patient.
Addendum entered by Tana Chris RN 05/06/24 15:11:
[employer] [facility] auth pending:
[id number]
Addendum entered by Tana Chris RN 05/06/24 15:01:
Cm spoke with Grand daughter Bryan [phone]. CM advised that [employer] is pending authorization. CM updated ED PA with discharge plan for tomorrow to SNF pending Auth.
Granddaughter stated that she is unsure if she will be agreeable to OBS stay due to 20% copay. CM also advised patient may be long-term. Pending hospitalist decision.
Addendum entered by Tana Chris RN 05/06/24 13:38:
CM spoke with granddaughter who stated that she wants patient to go to [facility]. CM is awaiting call back from Irish at [facility] to confirm a bed for tomorrow.
Patient's granddaughter stated that patient will be alone from 3pm -9am. She and her sister are unable to stay with him and they feel uncomfortable providing him care.
CM will await bed availablity update.
Addendum entered by Tana Chris RN 05/06/24 12:44:
CM sent referral via fax to [facility].
Original Note:
CM met with patient in room. Patient is refusing placement at this time at [facility]. CM spoke with patient's grand daughter Cody who stated that patient lives in [place] at [facility]. Patient has care givers 7 days a week from 9-3. Patient's
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 patient's is now hospitalized and will not be available for care.
Cody plan to arrive to room and discuss further with patient.
CM spoke with Irish who stated that [facility] who may not have a bed available until tomorrow. CM will await grand daughters arrival.
--- NOTE | 2024-05-06 16:36 | HPS.HSE ---
Family Physician
-
Family Physician: Anju Mendoza
Chief Complaint
-
back pain
History of Present Illness
83 y/o M with PMHx:
CAD with h/o stent placement: cont statin
h/o GBM s/p craniotomy and resection, Chemo and and XRT 9 years ago with resulting aphasia/dysphasia
h/o CVA
Hyperlipidemia
Paroxysmal Afib
GERD
Dementia without behavioral disturbances
Chronic ambulatory dysfunction
Who presents with a chief complaint of back pain. Two days ago the patient attempted to walk without his walker and fell on his buttocks. He has had pain in his low back since. Denies bowel or bladder incontinence or saddle anesthesia. He also
mentions that he has had urinary frequency and dysuria. Denies any fevers. Denies chest pain, shortness of breath, nausea, vomiting, abdominal pain, diarrhea, headache, visual disturbances, neck stiffness, focal neurological deficit.
Medical History
Past Medical History
Past Medical History: Reports Other (as per HPI)
Past Surgical History: Reports Other (N/A)
Social History
Tobacco: Non-smoker
Alcohol: None
Drug: None
Family History
Family History: Not pertinent
Allergies / Home Medications
Allergies reflects when Allergies were last updated in [employer].
Home Medications with original date entered in [employer]
Allergy/Medication List:
Allergies
Allergy/AdvReac Type Severity Reaction Status Date / Time
iodine Allergy Unknown Unknown Verified 03/04/24 19:51
shellfish derived Allergy Unknown Verified 05/05/24 23:12
Home Medications
acetaminophen 325 mg tablet 650 mg PO Q6HPRN PRN mild pain 03/04/24
amiodarone 200 mg tablet 200 mg PO HS Arrhythmia 03/04/24
atenolol 25 mg tablet 25 mg PO BID Blood Pressure 03/04/24
clotrimazole 1 % topical cream (Athlete's Foot (clotrimazole)) 1 applic topical DAILY B/L feet 03/04/24
ezetimibe 10 mg tablet (Zetia) 10 mg PO HS High Cholesterol 03/04/24
ipratropium bromide 21 mcg (0.03 %) nasal spray 2 spray intranasal DAILYPRN PRN rhinitis 03/04/24
levetiracetam 500 mg tablet 500 mg PO BID Seizures 03/04/24
xonptsxchchp-ehk-xykxz acid-vit K-lycop 400 mcg-20 mcg-370 mcg tablet (Men's 50 Plus Multivitamin) 1 tab PO DAILY Supplement 03/04/24
polyethylene glycol 3350 17 gram oral powder packet (HealthyLax) 17 g PO DAILY PRN constipation 03/04/24
rivaroxaban 15 mg tablet (Xarelto) 15 mg PO HS Blood Clot Prevention/Tx 03/04/24
rosuvastatin 5 mg tablet 5 mg PO MOWEFR@2200 High Cholesterol 03/04/24
tamsulosin 0.4 mg capsule 0.4 mg PO DAILY Urinary Issue 03/04/24
pantoprazole 40 mg tablet,delayed release 40 mg PO DAILY #0 tabs 03/13/24
Review of Systems
-
History Source: Patient
A 12 point ROS was completed and negative except as noted: Yes
Physical Exam
Vital Signs
Vital Signs
Temp Pulse Resp BP Pulse Ox
97.9 F 69 21 126/60 97
05/05/24 23:10 05/06/24 13:00 05/06/24 13:00 05/06/24 08:00 05/06/24 09:30
Physical Exam
General: Other (.)
Laboratory Results
-
05/06/24 05:36
05/06/24 05:36
Laboratory Results
Total Bilirubin 0.6 mg/dl (0.2-1.3) 05/06/24 05:36
AST 39 U/L (17-59) 05/06/24 05:36
ALT 49 U/L (0-50) 05/06/24 05:36
Alkaline Phosphatase 87 U/L (38-126) 05/06/24 05:36
Impression/Plan
-
Gen: NAD, Awake and alert
Eyes: EOMI, PERRLA, no scleral icterus.
Neck: supple.
CV: RRR, +S1/S2, no m/r/g.
Resp: CTAB, no rales, wheezes, or rhonchi.
Abd: +BS, soft, NT, ND
Skin: No rashes.
Neuro: CN 2-12 intact, non-focal.
Psych: Normal mood and affect.
CT brain:
1. No acute intracranial abnormalities appreciated.
2. Postsurgical change within the left parietal lobe, unchanged compared to prior CT.
3. Atrophy and small vessel ischemic change, unchanged.
CT A/P:
1. No CT abnormalities identified to explain the patient's symptoms.
2. No evidence of intestinal obstruction, bowel inflammatory process, nephrolithiasis, hydronephrosis, cholecystitis, or abscess formation.
3. Small hiatal hernia without evidence of incarceration.
4. Mild Degenerative change within the lower lumbar spine.
Possible UTI:
-Patient mentions dysuria and polyuria over the past 2 days. Urinalysis with pyuria.
-afebrile, no leukocytosis
-ER had ordered Rocephin
-follow UCx
-as per pt's granddaughter pt does not have frequent UTIs
-start Keflex in 24 hours
Ambulatory dysfunction, acute on chronic:
-pt fell 2 days ago onto his buttocks when he attempted to walk without his walker
-Denies bowel or bladder incontinence or saddle anesthesia
-PT/OT, supportive care
Other problems:
CAD with h/o stent placement: cont statin
h/o GBM s/p craniotomy and resection, Chemo and and XRT 9 years ago with resulting aphasia/dysphasia: cont Keppra
h/o CVA: Cont Xarelto/Statin/Zetia
Hyperlipidemia: cont statin/Zetia
Paroxysmal Afib: Cont Xarelto/Amio/Atenolol
GERD: cont PPI
Dementia (as per pt's granddaughter) without behavioral disturbances
Observation
FULL code
Xarelto
--- NOTE | 2024-05-06 18:54 | PTCARENOTE ---
pt presents from ED via stretcher. pt is AAO to self, disoriented to place and time. pt is c/o back pain. pt's is a room mate. 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 pt is calm. call almazan within the reach. will continue plan of care.
[2024-05-06] MEDS: KEPPRA 500 MG PO (20:20)
[2024-05-06] MEDS: TENORMIN 25 MG PO (20:20)
[2024-05-06] MEDS: PACERONE 200 MG PO (22:31)
[2024-05-06] MEDS: XARELTO 15 MG PO (22:32)
[2024-05-06] MEDS: ZETIA 10 MG PO (22:32)
[2024-05-06] MEDS: TYLENOL 650 MG PO (22:37)
[2024-05-07] MEDS: TYLENOL 650 MG PO (06:22)
[2024-05-07 06:46] LABS: Hemoglobin 11.7 g/dL (13.0-18.0); Mean Corp Hgb Conc. 34.4 g/dL (33.0-37.0); Mean Corpuscular Hgb 31.9 pg (27.0-31.0); Mean Corpuscular Volume 92.6 fL (80.0-94.0); Mean Platelet Volume 9.2 fL (7.4-10.4); Platelet Count 141 10^3/uL (130-400); Red Blood Cell Count 3.67 10^6/uL (4.70-6.10); Red Cell Dist. Width 14.6 % (11.5-14.5); White Blood Cell Count 7.1 10^3/uL (4.8-10.8)
[2024-05-07 07:22] LABS: Blood Urea Nitrogen 24 mg/dl (9-20); Calcium 9.5 mg/dl (8.4-10.2); Carbon Dioxide 31 mmol/L (22-30); Chloride 103 mmol/L (98-107); Estimated Creatinine Clearance 51 ml/min; Glucose 91 mg/dl (70-99); Potassium 3.9 mmol/L (3.5-5.1); Sodium 138 mmol/L (135-145); eGFR > 60.00
[2024-05-07 07:25] VITALS: BP 108/65
--- NOTE | 2024-05-07 07:44 | W.PN.HOSP.TC ---
Today's Communication/Plan
-
d/c
Assessment / Plan
Assessment / Plan
Gen: NAD, Awake and alert
Eyes: EOMI, PERRLA, no scleral icterus.
Neck: supple.
CV: Remains RRR, +S1/S2, no m/r/g.
Resp: Remains CTAB, no rales, wheezes, or rhonchi.
Abd: Remains +BS, soft, NT, ND
Skin: No rashes.
Neuro: CN 2-12 intact, non-focal.
Psych: Normal mood and affect.
CT brain:
1. No acute intracranial abnormalities appreciated.
2. Postsurgical change within the left parietal lobe, unchanged compared to prior CT.
3. Atrophy and small vessel ischemic change, unchanged.
CT A/P:
1. No CT abnormalities identified to explain the patient's symptoms.
2. No evidence of intestinal obstruction, bowel inflammatory process, nephrolithiasis, hydronephrosis, cholecystitis, or abscess formation.
3. Small hiatal hernia without evidence of incarceration.
4. Mild Degenerative change within the lower lumbar spine.
Possible UTI:
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 Urinalysis with pyuria.
-afebrile, no leukocytosis
-Rocephin given 05/06/24
-follow UCx
-as per pt's granddaughter pt does not have frequent UTIs
-start Keflex this evening for 6 days to complete 7 days of antibiotic therapy (empirically)
Ambulatory dysfunction, acute on chronic:
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
-Denies bowel or bladder incontinence or saddle anesthesia
-PT/OT, supportive care
Other problems:
CAD with h/o stent placement: cont statin
h/o GBM s/p craniotomy and resection, Chemo and and XRT 9 years ago with resulting aphasia/dysphasia: cont Keppra
h/o CVA: Cont Xarelto/Statin/Zetia
Hyperlipidemia: cont statin/Zetia
Paroxysmal Afib: Cont Xarelto/Amio/Atenolol
GERD: cont PPI
Dementia (as per pt's granddaughter) without behavioral disturbances
Observation
FULL code
Xarelto
Patient's updated at bedside.
Medically cleared for discharge. Case management aware.
Total time spent on d/c = 31 min. This included today's physical exam, progress note, review of laboratory and diagnostic data, preparation of discharge documents and prescriptions, and discussions about the pt's hospital course and discharge plan
with the patient and other medical observer involved in the patient's care.
Anticipated Discharge: Today
Subjective/Interval History
-
Date of Service: May 07, 2024
No new complaints.
Objective Data
-
Labs:
Laboratory Results
05/07/24
06:12
WBC 7.1
Hgb 11.7 L
Hct 34.0 L
Plt Count 141
Sodium 138
Potassium 3.9
Chloride 103
Carbon Dioxide 31 H
BUN 24 H
Creatinine 1.0
Glucose 91
Calcium 9.5
Vital Signs:
Vital Signs
Temp Pulse Resp BP Pulse Ox
98.1 F 67 14 109/57 96
05/06/24 23:01 05/06/24 23:01 05/06/24 23:01 05/06/24 23:01 05/06/24 23:01
I&O
05/06/24 05/07/24 05/08/24
06:59 06:59 06:59
Intake Total 100 / 100
Output Total 225 / 225
Balance -125 / -125
[2024-05-07 09:58] VITALS: BP 93/56; BP 98/55; PULSE 60; O2SAT 96
[2024-05-07] MEDS: KEPPRA 500 MG PO (10:01)
[2024-05-07] MEDS: THERAGRAN 1 TABLET PO (10:02)
[2024-05-07] MEDS: LOTRIMIN 1% CREAM 1 APPLIC TOPICAL (10:02)
[2024-05-07] MEDS: TENORMIN 25 MG PO (10:02)
[2024-05-07] MEDS: FLOMAX 0.400000000000000022 MG PO (10:03)
[2024-05-07] MEDS: PROTONIX 40 MG PO (10:03)
--- NOTE | 2024-05-07 10:38 | CM ---
ROSALINDA received call from Lobito's granddaughter, Tana [phone], to discuss discharge to [facility]. Advised Tana that Authorization is still pending; reached out to [facility] for update and authorization is still pending at this time. ([email or web address]
Reference # [id number].
Tana plans to drive Lobito to [facility] once authorization is approved.
She is very concerned that he will refuse if he knows he is not returning to his apartment with his (who is currently in the same room).
I spoke with Loida [phone] at [facility] who confirms bed is available today, however if family wishes for him to come prior to auth, they would be responsible for $529/day.
Plan: Await authorization from [facility] and will facilitate transfer to [facility].
[2024-05-07 11:30] VITALS: BP 121/75
--- NOTE | 2024-05-07 11:56 | CM ---
ROSALINDA received a call from Breanne at [facility] who advised that the SNF authorization has been denied by the Mutual Funds Agent. I coordinated a call between the [facility] Mutual Funds Agent and Physician Advisor (Dr. Toby Vargas), however that appeal was
also denied.
Breanne provided another appeal option and Lobito Adams's granddaughter is going to call to appeal the denial and was provided with the reference number of the SNF case # [id number]. Options if the family appeal is denied are discharge to
apartment with his , or transfer to [facility] as private pay rate.
Await family update regarding their appeal. ROSALINDA will continue to follow.
--- NOTE | 2024-05-07 12:59 | W.DCSUMMARY ---
Discharge Summary
Discharge Data
Date of Admission: 05/06/24
Date of Discharge: 05/07/24
-
Pending Results: No
Hospital Course
Primary diagnoses:
Secondary diagnoses:
Coronary artery disease with h/o stent placement
h/o glioblastoma multiforme s/p craniotomy and resection, chemotherapy and radiation 9 years ago with resulting aphasia/dysphasia
h/o CVA: Cont Xarelto/Statin/Zetia
Hyperlipidemia: cont statin/Zetia
Paroxysmal Afib: Cont Xarelto/Amio/Atenolol
GERD: cont PPI
Dementia (as per pt's granddaughter) without behavioral disturbances
Consultants:
Imaging:
CT brain:
1. No acute intracranial abnormalities appreciated.
2. Postsurgical change within the left parietal lobe, unchanged compared to prior CT.
3. Atrophy and small vessel ischemic change, unchanged.
CT A/P:
1. No CT abnormalities identified to explain the patient's symptoms.
2. No evidence of intestinal obstruction, bowel inflammatory process, nephrolithiasis, hydronephrosis, cholecystitis, or abscess formation.
3. Small hiatal hernia without evidence of incarceration.
4. Mild Degenerative change within the lower lumbar spine.
Hospital course: 83-year-old male who presented with ambulatory dysfunction due to back pain due to recent fall as outlined in H&P done yesterday. Initially the patient was set up to be discharged to [facility] from the ER but then was
admitted for further disposition efforts. The patient mentioned dysuria and polyuria over the 2 days prior to admission. Urinalysis with pyuria. He was afebrile and had no leukocytosis. The patient was discharged on Keflex to complete 7 days of
empiric antibiotic therapy. The patient was discharged in medically stable condition.
Discharge Plan
-
Patient Disposition: Long Term/SNF
Discharge Diagnosis/Procedures: Back pain, possible urinary tract infection
Condition: Good
Diet: No restrictions
Activity: With assistance
Driving Restrictions: No driving
Referrals:
Anju Mendoza MD [Family Provider] - in less than 1 week
Prescriptions:
New
cephalexin 500 mg Capsule
500 mg PO QID Qty: 28 0RF
Continued
amiodarone 200 mg Tablet
200 mg PO HS
levetiracetam 500 mg Tablet
500 mg PO BID
atenolol 25 mg Tablet
25 mg PO BID
tamsulosin 0.4 mg Capsule
0.4 mg PO DAILY
ipratropium bromide 21 mcg (0.03 %) [place],Non-Aerosol
2 spray INTRANASAL DAILYPRN PRN (Reason: rhinitis)
rosuvastatin 5 mg Tablet
5 mg PO MOWEFR@2200
Men's 50 Plus Multivitamin 400-20-370 mcg Tablet
1 tab PO DAILY
acetaminophen 325 mg tablet
650 mg PO Q6HPRN PRN (Reason: mild pain)
polyethylene glycol 3350 [HealthyLax] 17 gram powder in packet
17 g PO DAILY PRN (Reason: constipation)
clotrimazole [Athlete's Foot (clotrimazole)] 1 % cream
1 applic topical DAILY
ezetimibe [Zetia] 10 mg tablet
10 mg PO HS
Xarelto 15 mg tablet
15 mg PO HS
pantoprazole 40 mg Tablet,Delayed Release (Dr/Ec)
40 mg PO DAILY Qty: 0 0RF
Discharge Orders:
Discharge Patient (As Directed); Ordered 05/07/24
Ordered By: Denis Cook
Discharge Date and Time
Print Language: FRENCH
--- NOTE | 2024-05-09 10:06 | CM ---
Fax received from [place] with SNF approval for [facility] - dates of service 05/08-05/20/2024. Authorization number [id number]. Call to Bryan, granddaughter, currently staying with Mr. and Mrs. Gupta to notify of approved SNF stay at [facility];
Bryan is unsure if he will go there, but is aware that a bed is available if desired.
Authorization called to Mireya at [facility] and she will follow up with Bryan for next steps.
No further CM needs at this time, as pt is discharged and currently at home with and granddaughter.
== END 2024-05-07 14:31 | disposition home health service (06) ==
LOC: 4 EAST ACU 17:09
PROVIDERS: Emergency Medicine; ADMITTING PHYSICIAN Internal Medicine; EMERGENCY PHYSICIAN Emergency Medicine; FAMILY PHYSICIAN Internal Medicine Geriatric Medicine
DX: M54.50 Low back pain, unspecified (principal); M79.605 Pain in left leg; M47.816 Spondylosis without myelopathy or radiculopathy, lumbar region; R53.1 Weakness; R26.2 Difficulty in walking, not elsewhere classified; W19.XXXA Unspecified fall, initial encounter; Y93.9 Activity, unspecified; Y92.099 Unspecified place in other non-institutional residence as the place of occurrence of the external cause; Q04.3 Other reduction deformities of brain; E78.00 Pure hypercholesterolemia, unspecified; I10 Essential (primary) hypertension; M19.90 Unspecified osteoarthritis, unspecified site; I25.10 Atherosclerotic heart disease of native coronary artery without angina pectoris; I48.0 Paroxysmal atrial fibrillation; R47.01 Aphasia; E78.5 Hyperlipidemia, unspecified; K21.9 Gastro-esophageal reflux disease without esophagitis; F03.90 Unspecified dementia, unspecified severity, without behavioral disturbance, psychotic disturbance, mood disturbance, and anxiety; R47.02 Dysphasia; I48.91 Unspecified atrial fibrillation; K44.9 Diaphragmatic hernia without obstruction or gangrene; R30.0 Dysuria; R35.89 Other polyuria; R82.81 Pyuria; I67.82 Cerebral ischemia; Z85.841 Personal history of malignant neoplasm of brain; Z79.01 Long term (current) use of anticoagulants; Z95.0 Presence of cardiac pacemaker; Z95.5 Presence of coronary angioplasty implant and graft; Z86.73 Personal history of transient ischemic attack (TIA), and cerebral infarction without residual deficits; Z92.21 Personal history of antineoplastic chemotherapy; Z92.3 Personal history of irradiation; Z91.041 Radiographic dye allergy status; Z91.013 Allergy to seafood
CPT/HCPCS: 70450; 74177; 80048; 80053; 81003; 81015; 85025; 85027; 97166; G0378; Q9967

== ENCOUNTER 2024-09-06 11:45 | Emergency (ER) | payer OTHER, SELFPAY ==
[2024-09-06 11:50] VITALS: BP 163/92
[2024-09-06 14:25] VITALS: BP 149/112
[2024-09-06 14:38] VITALS: BMI 26.4
[2024-09-06 14:47] LABS: Urine Albumin Negative (Neg - Trace); Urine Bilirubin Negative (Negative); Urine Character Clear (Clear); Urine Color Yellow; Urine Glucose Negative (Negative); Urine Ketone Negative (Negative); Urine Leukocyte Negative (Negative); Urine Nitrite Negative (Negative); Urine Occult Blood Negative (Negative); Urine Urobilinogen Negative (Neg - 1+)
--- NOTE | 2024-09-06 15:13 | ED.GENMED ---
History of Present Illness
General
Chief Complaint: Male Genito-Urinary Symptoms
Source: patient
Exam Limitations: none
Time Seen by Provider: 09/06/24 12:46
Nursing documentation reviewed up to this point in time: agreed with
History of Present Illness
History of Present Illness:
84 y/o M with h/o glioblastoma, dementia, stroke, afib
here with 2-3 days intermittent lower abd pain and feeling urge to defecate and urinate
he has had trouble getting all of his stool and urine out
and caregiver do not nknow which is the problem
he does have h/o enlarged prostate on flomax
pt will wince in pain at times spontaneoulsy
last night all night pt was up and down to the bhatoorm tryign to void
he has had ureinary retention before but UA checked yesterday and neg
pt denies fever, anseua, vomiting.
no h/o bowel surgeries or bowel obstruction
Past History
Past History
ED Past Medical History: Arrthythmia, CAD, Cancer (Glioblastoma), CVA, HTN, Hypercholesterolemia and Other (Osteoarthritis, chronic ambulatory dysfunction, chronic expressive aphasia)
ED Past Surgical History: Brain and Cardiac (Pacemaker, stent)
Social History
Tobacco: Non-smoker
Alcohol: None
Personal:
Living: with family
Employment: Retired
Family History
Family History: Other (Noncontributory)
Review of Systems
Review of Systems
Allergies reviewed?: Yes
All Other Systems: Not applicable
Phy Exam
Physical Exam
Physical Exam:
GENERAL: Alert , in no apparent distress
EYE: pupils equal and reactive
NECK: Supple
ENT: o/p clr, mmm.
CARDIAC: Regular rate and rhythm .
LUNGS: Clear breath sounds bilaterally, no acute respiratory distress, no wheezes/rales/rhonchi
ABDOMEN: Soft,mod distention lower abd
rectus diastasis papreciated in upper abd
bladder distension appreciated, no r/g, no cvat, normal bowel sounds
fecal impaction on [place]LEY
removed large amoutn of stool, nonbloody
NEUROLOGICAL: Alert and oriented, no focal neuro deficits
SKIN: Warm and dry, skin intact.
MUSCULOSKELETAL: No edema, well perfused. neg miriam's sign
PSYCH: Normal and appropriate interaction.
Course
Orders/Labs/Results
Orders:
Orders
09/06/24 13:45
Enema- Treatment ONCE
Type: Milk of Molasses
Abdominal Series [CR Obstruct Series W/pa Chest] Urgent
Comment:
Reason For Exam: constipation
09/06/24 14:29
Urinalysis Reflex To Culture Urgent
Date Specimen was Collected: 09/06/24
Time Specimen was Collected: 14:27
09/06/24 15:34
Complete Blood Count/With Diff Urgent
Comprehensive Metabolic Panel Urgent
Abnormal Lab Results
09/06/24
15:34
RBC 4.00 L 10^6/uL
(4.70-6.10)
Hgb 11.7 L g/dL
(13.0-18.0)
Hct 35.3 L %
(39.0-52.0)
Absolute Lymphs (auto) 1.0 L 10^3/uL
(1.2-3.4)
Absolute Monos (auto) 0.7 H 10^3/uL
(0.1-0.6)
Neutrophils % 76.0 H %
(42.2-75.2)
Lymphocytes % 13.1 L %
(20.5-51.1)
Monocytes % 9.7 H %
(1.7-9.3)
BUN 28 H mg/dl
(9-20)
Glucose 126 H mg/dl
(70-99)
09/06/24 15:34
09/06/24 15:34
Vital Signs
Initial and Last Documented VS:
Initial Vital Signs
Temp Pulse Resp BP Pulse Ox
97.7 F 61 18 163/92 96
09/06/24 11:50 09/06/24 11:50 09/06/24 11:50 09/06/24 11:50 09/06/24 11:50
Last Documented Vital Signs
Temp Pulse Resp BP Pulse Ox
97.7 F 67 18 126/73 96
09/06/24 11:50 09/06/24 16:47 09/06/24 11:50 09/06/24 16:40 09/06/24 16:47
MDM/Problems Addressed
Differential Diagnosis Includes:
constipation, urinary retention, prostatitis, bowel obstruciton
MDM/Problems Addressed:
84 y/o M
dec stooling and abd distention as well as some dec urination over the pas tfew days
he has had interimttent episodes where he appears very unvomfortable
dementia at baseline, caregiver noticed that he hasn't been urinating normally
they presumed he was constipated
no enema attempted
on exam pt was distended with mild tenderness lower abd
he had fecal impaction on his rectal exam and was manually disimpacted some
intial bladder scan 200ml but when he got up to void, he was uanble and then had 300 in the bladder so he was straight cathed; i was unaware at the time that he was catheterized.; but suspected his urinary retention was probably just due to his
constipation
he was given an enema and had a very large BM, pain resolved
he felt no more urge to urinate
we kept him for observatio nto see if he would have issues with urinary retnetion but and caregiver sayt hey feel comfortable going home and will return if he has trouble voiding.
*Critical Care Note
Total Time (30-74mins, 75-104mins- exclusive of procedures): Not Applicable
ED Attending Note
-
Portions of this chart may have been created with voice recognition software.� Occasional wrong word or��sound alike� substitutions may have occurred due to the inherent limitations of voice recognition software.
Discharge Plan
Departure
Patient Disposition: Home (Routine Discharge)
Date of Disposition: 09/06/24
Time of Disposition: 16:48
Patient with high blood pressure during this ER visit?: No
Condition: Fair
Covid-19: Not Applicable
Discharge Problem:
Acute constipation
Instructions: Constipation, Adult ED
Prescriptions:
No Action
amiodarone 200 mg Tablet
200 mg PO HS
levetiracetam 500 mg Tablet
500 mg PO BID
atenolol 25 mg Tablet
25 mg PO BID
tamsulosin 0.4 mg Capsule
0.4 mg PO DAILY
ipratropium bromide 21 mcg (0.03 %) [place],Non-Aerosol
2 spray INTRANASAL DAILYPRN PRN (Reason: rhinitis)
rosuvastatin 5 mg Tablet
5 mg PO MOWEFR@2200
Men's 50 Plus Multivitamin 400-20-370 mcg Tablet
1 tab PO DAILY
acetaminophen 325 mg tablet
650 mg PO Q6HPRN PRN (Reason: mild pain)
polyethylene glycol 3350 [HealthyLax] 17 gram powder in packet
17 g PO DAILY PRN (Reason: constipation)
clotrimazole [Athlete's Foot (clotrimazole)] 1 % cream
1 applic topical DAILY
ezetimibe [Zetia] 10 mg tablet
10 mg PO HS
Xarelto 15 mg tablet
15 mg PO HS
pantoprazole 40 mg Tablet,Delayed Release (Dr/Ec)
40 mg PO DAILY Qty: 0 0RF
cephalexin 500 mg Capsule
500 mg PO QID Qty: 28 0RF
Referrals:
Anju Mendoza MD [Family Provider] - Follow up in 2-3 days
Activity Restrictions/Additional Instructions:
You should give Lobito Metamucil once a day to help prevent constipation. Encourage liquids. If he gets constipated again you can try MiraLAX twice a day for 2 or 3 days in a row. He was in a little bit of bladder retention but his urine was
normal. This is probably because he had a lot of stool but he should be followed up by his urologist. It is possible he could develop urinary retention again and if he is having issues peeing he should return to the ER. His kidney functionWas at
his baseline and normal.
Return for worsening abdominal pain, fever or chills, vomiting, urinary retention or any concerns
Interventions
Interventions:
*Risk Screen - Suicide Last Done: 09/06/24 11:50
*General Assessment Last Done: 09/06/24 11:50
*Neglect/Abuse Screening Last Done: 09/06/24 11:50
*Nursing Disposition Last Done: 09/06/24 17:20
ED-Male Genitourinary Assessment Last Done: 09/06/24 13:14
Discharge Date and Time
Discharge Date/Time: 09/06/24 17:23
Print Language: [place] ISLAND[place]
[2024-09-06 15:45] LABS: % Basophils 0.3 % (0-2); % Eosinophils 0.4 % (0-6); % Immature Granulocytes 0.5 % (0-0.5); % Lymphocytes 13.1 % (20.5-51.1); % Monocytes 9.7 % (1.7-9.3); Absolute Monocytes 0.7 10^3/uL (0.1-0.6); Absolute Neutrophils 5.7 10^3/uL (1.4-6.5); Hematocrit 35.3 % (39.0-52.0); Hemoglobin 11.7 g/dL (13.0-18.0); Mean Corp Hgb Conc. 33.1 g/dL (33.0-37.0); Mean Corpuscular Hgb 29.3 pg (27.0-31.0); Mean Corpuscular Volume 88.3 fL (80.0-94.0); Mean Platelet Volume 9.1 fL (7.4-10.4); Nucleated Red Blood Cells % 0 % (-); Platelet Count 171 10^3/uL (130-400); Red Cell Dist. Width 14.5 % (11.5-14.5); White Blood Cell Count 7.4 10^3/uL (4.8-10.8)
[2024-09-06 16:04] LABS: ALT (SGPT) 50 U/L (0-50); AST (SGOT) 40 U/L (17-59); Albumin 4.4 g/dl (3.5-5.0); Alkaline Phosphatase 75 U/L (38-126); Blood Urea Nitrogen 28 mg/dl (9-20); Calcium 9.9 mg/dl (8.4-10.2); Carbon Dioxide 29 mmol/L (22-30); Chloride 100 mmol/L (98-107); Estimated Creatinine Clearance 46 ml/min; Glucose 126 mg/dl (70-99); Potassium 4.4 mmol/L (3.5-5.1); Sodium 140 mmol/L (135-145); Total Bilirubin 0.7 mg/dl (0.2-1.3); Total Protein 7.5 g/dl (6.3-8.2); eGFR > 60.00
[2024-09-06 16:40] VITALS: BP 126/73
== END 2024-09-06 17:23 | disposition home or self-care (01) ==
LOC: EMR 11:45
PROVIDERS: Physician Assistant; EMERGENCY PHYSICIAN Emergency Medicine; FAMILY PHYSICIAN Internal Medicine Geriatric Medicine
DX: K59.09 Other constipation (principal); N40.1 Benign prostatic hyperplasia with lower urinary tract symptoms; R33.8 Other retention of urine; F03.90 Unspecified dementia, unspecified severity, without behavioral disturbance, psychotic disturbance, mood disturbance, and anxiety; I48.91 Unspecified atrial fibrillation; C71.9 Malignant neoplasm of brain, unspecified; I25.10 Atherosclerotic heart disease of native coronary artery without angina pectoris; I10 Essential (primary) hypertension; E78.00 Pure hypercholesterolemia, unspecified; M19.90 Unspecified osteoarthritis, unspecified site; R47.01 Aphasia; Z86.73 Personal history of transient ischemic attack (TIA), and cerebral infarction without residual deficits; Z95.0 Presence of cardiac pacemaker; Z95.5 Presence of coronary angioplasty implant and graft
CPT/HCPCS: 99284; 51798; 51701; 74022; 80053; 81003; 85025